=== PATIENT | female | born 1945 | race Caucasian/White ===

== ENCOUNTER → 2016-11-09 | Outpatient (CLI) | payer OTHER, BC ==
[~2016-11-09] MED LIST: ACTOS 45 MG45 M1 PO; ACTOS15 MG; ALENDRONATE SOD70 MG PO; BIOTIN1 MG PO; CALCIUM 600 +1 EAC5 PO; CALCIUM 600 MG1 EAC3; COUMADIN 2.5MG2.5 M1 PO; COUMADIN 3 MG TA3 MG; COUMADIN 5 MG TA5 M1; COUMADIN 5 MG TA5 M1 PO; COZAAR 50 MG TA50 M1 PO; DILTIAZEM 24HR360 M1 PO; DILTIAZEM HCL30 MG; DOCUSATE SODIU100 MG PO; ENOXAPARIN80 MG/0.8 SUBQ; FERRO-TIME325 MG PO; FLOVENT HFA 1110 MCG INH; FOLIC ACID 40400 MC1 PO; HYDROCHLOROTHIA25 M2 PO; HYDROCODON-ACE1 EAC7 PO; IBUPROFEN 600600 M1 PO; METAMUCIL1 EAC1 PO; MULTIVITAMINS PO; MULTIVITAMINS1 EAC7; PAIN & FEVER325 MG PO; PHILLIPS' COLO1 EACH PO; PRILOSEC 20 MG20 MG PO; PROAIR HFA8.5 GM INH; QVAR HFA 440 MCG/UN1 INH; QVAR HFA 880 MCG/UN1 INH; QVAR8.7 G1 INH; SAVAYSA60 MG PO; SIMVASTATIN5 MG; TAZTIA XT; TRAMADOL 50 MG50 MG PO; VITAMIN B122500 MCG PO; VITAMIN D1000 UNI1 PO; VITAMINC500 PO; ZINC CHELATE50 MG PO; ZOCOR 20 MG TAB20 M1 PO
== END ==
LOC: HYPER 07:04
DX: L89.892 Pressure ulcer of other site, stage 2 (principal); S71.001D Unspecified open wound, right hip, subsequent encounter; E11.22 Type 2 diabetes mellitus with diabetic chronic kidney disease; I12.9 Hypertensive chronic kidney disease with stage 1 through stage 4 chronic kidney disease, or unspecified chronic kidney disease; N18.9 Chronic kidney disease, unspecified; E11.69 Type 2 diabetes mellitus with other specified complication; I89.0 Lymphedema, not elsewhere classified; E66.01 Morbid (severe) obesity due to excess calories; J44.9 Chronic obstructive pulmonary disease, unspecified; I87.2 Venous insufficiency (chronic) (peripheral); E78.5 Hyperlipidemia, unspecified; Z79.84 Long term (current) use of oral hypoglycemic drugs; X58.XXXD Exposure to other specified factors, subsequent encounter

== ENCOUNTER → 2017-02-01 | Outpatient (CLI) | payer OTHER, BC | LOC: HYPER 07:17 | DX: L89.892 Pressure ulcer of other site, stage 2 (principal); S71.001D Unspecified open wound, right hip, subsequent encounter; E66.01 Morbid (severe) obesity due to excess calories; E11.65 Type 2 diabetes mellitus with hyperglycemia; I87.2 Venous insufficiency (chronic) (peripheral); J44.9 Chronic obstructive pulmonary disease, unspecified; E78.5 Hyperlipidemia, unspecified; E11.22 Type 2 diabetes mellitus with diabetic chronic kidney disease; I12.0 Hypertensive chronic kidney disease with stage 5 chronic kidney disease or end stage renal disease; N18.6 End stage renal disease; E11.51 Type 2 diabetes mellitus with diabetic peripheral angiopathy without gangrene; Z79.84 Long term (current) use of oral hypoglycemic drugs; Z87.891 Personal history of nicotine dependence; Z72.89 Other problems related to lifestyle; X58.XXXD Exposure to other specified factors, subsequent encounter ==

== ENCOUNTER → 2017-04-10 | Outpatient (CLI) | payer OTHER, BC | LOC: HYPER 07:02 | DX: E11.622 Type 2 diabetes mellitus with other skin ulcer (principal); I87.2 Venous insufficiency (chronic) (peripheral); L97.121 Non-pressure chronic ulcer of left thigh limited to breakdown of skin; I89.0 Lymphedema, not elsewhere classified; E11.65 Type 2 diabetes mellitus with hyperglycemia; J44.9 Chronic obstructive pulmonary disease, unspecified; E11.22 Type 2 diabetes mellitus with diabetic chronic kidney disease; I12.9 Hypertensive chronic kidney disease with stage 1 through stage 4 chronic kidney disease, or unspecified chronic kidney disease; N18.9 Chronic kidney disease, unspecified; I48.92 Unspecified atrial flutter; I65.29 Occlusion and stenosis of unspecified carotid artery; E66.01 Morbid (severe) obesity due to excess calories; Z79.84 Long term (current) use of oral hypoglycemic drugs; Z87.891 Personal history of nicotine dependence; Z72.89 Other problems related to lifestyle ==

== ENCOUNTER 2017-05-15 18:36 | Emergency (ER) | payer OTHER, BC ==
[~2017-05-15] VITALS: Ht 154.9 cm; Wt 99.8 kg
[2017-05-15 19:28] LABS: URINE BILIRUBIN NEGATIVE (Negative); URINE BLOOD 1+ (Negative); URINE COLOR YELLOW; URINE GLUCOSE-RANDOM* NEGATIVE (Negative); URINE KETONES 1+ (Negative); URINE LEUKOCYTES-REFLEX 3+ (Negative); URINE PROTEIN (DIPSTICK) 1+ (Negative); URINE SPECIFIC GRAVITY 1.015 (1.003-1.035)
[2017-05-15 19:30] LABS: HEMATOCRIT 32.3 % (37.0-47.0); HEMOGLOBIN 10.7 gm/dL (12.0-15.0); MCH 32.6 pg (26.0-34.0); MCHC 33.1 g/dL (28.0-37.0); MCV 98.4 fL (80.0-100.0); PLATELET COUNT 202 thou/uL (150-400); RBC 3.28 mil/uL (4.20-5.00); RDW 16.3 % (10.5-14.5); WBC 8.5 thou/uL (4.0-11.0)
[2017-05-15 19:31] LABS: MANUAL DIFF YES
[2017-05-15 19:34] LABS: CASTS None Seen /LPF (None Seen); CRYSTALS None Seen /LPF (None Seen); SQUAMOUS 0-3 Few /LPF (0-3); URINE RBC 3-10 Few /HPF (0-2); URINE WBC-REFLEX >25 Many /HPF (0-5)
[2017-05-15 19:38] LABS: CALCIUM 9.5 mg/dL (8.5-10.1); CREATININE 1.1 mg/dL (0.6-1.0); POTASSIUM 4.3 mmol/L (3.5-5.1)
[2017-05-15 19:51] LABS: ABSOLUTE NEUTROPHILS 7.5 thou/uL (1.4-8.2); TOTAL CELL COUNT 100
[2017-05-15] MEDS ORDERED: KEFLEX500 MG PO (20:33)
== END 2017-05-15 21:01 | disposition home or self-care (01) ==
LOC: ER 18:36
PROVIDERS: Emergency Medicine
DX: N39.0 Urinary tract infection, site not specified (principal); I12.9 Hypertensive chronic kidney disease with stage 1 through stage 4 chronic kidney disease, or unspecified chronic kidney disease; E11.22 Type 2 diabetes mellitus with diabetic chronic kidney disease; N18.9 Chronic kidney disease, unspecified; R06.02 Shortness of breath; E78.00 Pure hypercholesterolemia, unspecified; E66.01 Morbid (severe) obesity due to excess calories; J44.9 Chronic obstructive pulmonary disease, unspecified; K21.9 Gastro-esophageal reflux disease without esophagitis; I48.91 Unspecified atrial fibrillation; F10.99 Alcohol use, unspecified with unspecified alcohol-induced disorder; Z98.890 Other specified postprocedural states; Z99.2 Dependence on renal dialysis

== ENCOUNTER → 2017-06-15 | Outpatient (CLI) | payer OTHER, BC ==
[~2017-06-15] MED LIST changes: +KEFLEX500 MG PO
== END ==
LOC: RAD 10:22
DX: J90 Pleural effusion, not elsewhere classified (principal)

== ENCOUNTER → 2017-06-21 | Outpatient (CLI) | payer OTHER, BC ==
--- NOTE | ~2017-06-21 | CNG ---
[facility] [place] [address] CYTO-NONGYN REPORT PROCEDURE Name: KAJAL HADLEY Room #: REG [facility].#: [id number] Admission: 06/21/17 Date of : 41 Discharge: Report #: [id number] Path Case #: [id number] CYTOPATHOLOGY REPORT COLLECTION DATE: 06/21/2017 RECEIVED DATE: 06/21/2017 SUBMITTING PHYS: Dr. Beingno Negrete OTHER PHYS: Dr. Nerissa Castellanos CLINICAL HISTORY: Not Provided SPECIMEN(S) RECEIVED: A.Pleural fluid, Thoracentesis * * * * * * * * * * * * FINAL DIAGNOSIS: A. Pleural fluid, Thoracentesis: - No malignant cells identified. Paucicellular specimen with rare mesothelial cells and scattered acute and chronic inflammatory cells present. PATHOLOGIST: Ivonne Che M.D. REPORT ELECTRONICALLY SIGNED BY: Ivonne Che M.D. DATE/TIME: 06/22/2017 12:39 * * * * * * * * * * * * GROSS PATHOLOGY: A. Pleural fluid, Thoracentesis: The specimen is submitted unfixed, labeled "Kajal Hadley". Received by the Cytology Department is 27 mL of clear yellow fluid. One ThinPrep slide and a cell block were prepared. (mm 06.21.2017) SPECIAL EDUCATION RESOURCE ROOM TEACHER(S): GUANAKO Jiménez([facility]) INITIAL CPT CODE(S): A; 69105, 59835 Professional services performed by [facility] at [facility] [address], [place] [address] Technical services performed by [facility] at [address] [place] [address]., [address], [place] [address]. [facility] [address] [place] [address], [facility] [address] [place] [address] [facility] [address] [place] [address] CYTO-NONGYN REPORT PROCEDURE Name: KAJAL HADLEY Room #: REG CONG [place]#: [id number] Admission: 06/21/17 Date of : 41 Discharge: Report #: [id number] Path Case #: [id number] PHONE: [phone] DIRECTOR: Constantin Hinojosa M.D. * * * END OF REPORT * * *
[2017-06-21 10:05] LABS: HEMATOCRIT 29.6 % (37.0-47.0); HEMOGLOBIN 9.8 gm/dL (12.0-15.0); MCH 32.1 pg (26.0-34.0); MCV 97.3 fL (80.0-100.0); RBC 3.04 mil/uL (4.20-5.00); RDW 16.7 % (10.5-14.5); WBC 4.2 thou/uL (4.0-11.0)
[2017-06-21 10:16] LABS: INR 1.2; PROTIME 11.8 Seconds (9.3-11.4)
[2017-06-21 10:17] LABS: ALBUMIN 3.3 g/dL (3.4-5.0); CREATININE 1.6 mg/dL (0.6-1.0)
[2017-06-21 12:06] LABS: CLARITY SLIGHTLY CLOUDY; COLOR YELLOW; TOTAL VOLUME 55 mL
[2017-06-21 12:24] LABS: BF NUCLEATED CELLS 261; BF RBC 653
[2017-06-21 13:07] LABS: BF MACROPHAGE 50; BF NEUTROPHILS 7; MANUAL DIFF YES
[2017-06-22 15:07] LABS: BODY FLUID ALBUMIN 1.8 g/dL (()); BODY FLUID AMYLASE 13 U/L (()); BODY FLUID GLUCOSE 104 mg/dL (()); BODY FLUID LDH 84 IU/L (()); BODY FLUID PROTEIN 2.6 g/dL (())
== END ==
LOC: ULTRA 08:59
PROVIDERS: Internal Medicine Pulmonary Disease
DX: J90 Pleural effusion, not elsewhere classified (principal)

== ENCOUNTER 2017-07-04 13:33 | Inpatient (IN) | payer OTHER, BC ==
[~2017-07-04] VITALS: Ht 152.4 cm; Wt 93.4 kg
--- NOTE | ~2017-07-04 | EKG ---
[place] [address] [address] [facility] [employer] [address] ELECTROCARDIOGRAM REPORT Name: SHANE CASTAÑEDA Room #: 217- ADM IN M.R.#: [id number] Admission: 07/04/17 Attend Phys: Dwayne Vega MD Discharge: Date of : 41 Report #: [id number] THIS REPORT FOR: //name// [facility] Test Date: 2017-07-04 Test Time: 17:18:02 Pat Name: SHANE CASTAÑEDA Department: Room: 217 Gender: F Studio Engineer: EMILY : 1945 Requested By: Benigno Negrete Order Number: [id number] MD: Jax Mello Measurements Intervals [place] Rate: 75 P: [place]: QRS: 66 QRSD: 104 T: -8 QT: 446 QTc: 499 Interpretive Statements Atrial fibrillation Low voltage, precordial leads Poor R wave progression Compared to ECG 08/01/2013 21:15:58 Heart rate has slowed Electronically Signed On 07-05-2017 8:46:37 CDT by Jax Mello [email or web address] <ELECTRONICALLY SIGNED> By: Jax Mello MD, [facility] 07/05/1746 1718 17 Jax Mello MD, [facility] /EPI
--- NOTE | ~2017-07-04 | CNG ---
[facility] [place] [address] CYTO-NONGYN REPORT PROCEDURE Name: KAJAL HADLEY Room #: 217-P [facility] IN M.R.#: [id number] Admission: 07/04/17 Date of : 41 Discharge: 07/06/17 Report #: [id number] Path Case #: [id number] CYTOPATHOLOGY REPORT COLLECTION DATE: 07/05/2017 RECEIVED DATE: 07/05/2017 SUBMITTING PHYS: Dr. Benigno Negrete OTHER PHYS: Dr. Dwayne Castellanos CLINICAL HISTORY: Right Pleural Effusion, CHF SPECIMEN(S) RECEIVED: A.Pleural fluid, Right * * * * * * * * * * * * FINAL DIAGNOSIS: A. Right Pleural fluid: - No malignant epithelial cells identified. Few reactive mesothelial cells are present along with acute and chronic inflammatory cells. PATHOLOGIST: Rita Avalos M.D. REPORT ELECTRONICALLY SIGNED BY: Rita Avalos M.D. DATE/TIME: 07/06/2017 15:31 * * * * * * * * * * * * GROSS PATHOLOGY: A. Pleural fluid, Right: The specimen is submitted unfixed, labeled "Kajal Hadley". Received by the Cytology Department is 25 mL of clear yellow fluid. One ThinPrep slide and a formalin fixed cell block were prepared. (lg 07.05.2017) CMM OPERATOR(S): Noe J [place], [place]([facility]) INITIAL CPT CODE(S): A; 99804, 94119 Professional services performed by [facility] at [facility] [address], [place] [address] Technical services performed by [facility] at [address] [place] [address]., [address], [place] [address]. [facility] [address] [place] [address], [address] [facility] [address] [place] [address] CYTO-NONGYN REPORT PROCEDURE Name: KAJAL HADLEY Room #: 217-P DIS IN M.R.#: [id number] Admission: 07/04/17 Date of : 41 Discharge: 07/06/17 Report #: [id number] Path Case #: [id number] [place] [address] PHONE: [phone] DIRECTOR: Constantin Hinojosa M.D. * * * END OF REPORT * * *
--- NOTE | ~2017-07-04 | 2DMMODE ---
[facility] [address] [place] [address] 2 D/M-MODE ECHOCARDIOGRAM Name: SHANE CASTAÑEDA Room #: 217-P ADM IN ..#: [id number] Admission: 07/04/17 Attend Phys: Dwayne Vega MD Discharge: Date of : 41 Date of Service: 07/05/17 1350 Report #: [id number] THIS REPORT FOR: //name// APPROVED REPORT Study performed: 07/05/2017 09:16:22 EXAM: Comprehensive 2D, Doppler, and color-flow Echocardiogram Patient Location: Bedside Status: routine BSA: 1.89 HR: 80 bpm BP: 126/61 mmHg Rhythm: Atrial Fibrillation Other Information Study Quality: Adequate Indications COPD Pulmonary Hypertension Atrial Fibrillation Hypertension/HDD Pleural Effusion Hx: HTN 2D Dimensions RVDd: 43.54 mm LVEF(%): 69.29 (>50%) IVSd: 8.98 (7-11mm) LVOT Diam: 20.07 (18-24mm) LVDd: 50.16 mm PWd: 10.30 (7-11mm) Ascending Ao: 31.68 (22-36mm) LVDs: 30.55 (25-40mm) Aortic Root: 30.79 mm IVC: 28.00 mm Obrien's LVEF: 69.29 % Volumes Left Atrial Volume (Systole) Single Plane 4CH: 116.59 mL Single Plane 2CH: 76.00 mL LA ESV Index: 55.00 mL/m2 Aortic Valve AoV Peak Edin.: 1.79 m/s AO Peak Gr.: 12.78 mmHg LVOT Max P.28 mmHg LVOT Max V: 1.03 m/s [facility] [place] [address] [place] [address] 2 D/M-MODE ECHOCARDIOGRAM Name: SHANE CASTAÑEDA Room #: 217-P [facility] IN ..#: [id number] Admission: 07/04/17 Attend Phys: Dwayne Vega MD Discharge: Date of : 41 Date of Service: 07/05/17 1350 Report #: [id number] AMANDEEP Vmax: 1.83 cm2 Mitral Valve MV Peak Gr.: 19.30 mmHg MV Mean Gr.: 7.67 mmHg MV Decel. Time: 177.51 ms MV E Max Edin.: 1.89 m/s MV Max Edin.: 2.19 m/s MV Mean Edin.: 1.26 m/s MV VTI: 415.33 mm MV PHT: 77.39 ms MVA (PHT): 2.84 cm2 Pulmonary Valve PV Peak Edin.: 1.13 m/s PV Peak Gr.: 5.15 mmHg Tricuspid Valve TR Peak Edin.: 3.43 m/s RAP Estimate: 15.00 mmHg TR Peak Gr.: 47.18 mmHg PA Pressure: 62.00 mmHg Left Ventricle The left ventricle is normal size. There is normal left ventricular wall thickness. Left ventricular systolic function is normal. LVEF is 55-60%. This study is not technically sufficient to allow evaluation of the LV diastolic function due to atrial fibrillation. Right Ventricle Right ventricle is dilated. The right ventricular systolic function is normal. Atria Left atrium is severely dilated. Right atrium is dilated. Aortic Valve The aortic valve is normal in structure. No aortic regurgitation is present. There is no aortic valvular stenosis. Mitral Valve Mitral valve leaflets are thickened. The mitral valve is calcified. Mild mitral regurgitation. No evidence of mitral valve stenosis. Tricuspid Valve The tricuspid valve is normal in structure. Mild to moderate tricuspid regurgitation. Moderate to severe pulmonary [place] [id number] 2 D/M-MODE ECHOCARDIOGRAM Name: SHANE CASTAÑEDA Room #: 217-P [facility] IN [facility]#: [id number] Admission: 07/04/17 Attend Phys: Dwayne Vega MD Discharge: Date of : 41 Date of Service: 07/05/17 1350 Report #: [id number] hypertension. Pulmonic Valve Pulmonic valve is grossly normal in structure. Trace pulmonic regurgitation. Great Vessels The aortic root is normal in size. The ascending aorta is normal in size. IVC is dilated and collapses <50% with inspiration. Pericardium There is no pericardial effusion. Pleural effusion is present. <Conclusion> The left ventricle is normal size. Left ventricular systolic function is normal. Right ventricle is dilated. Left atrium is severely dilated. Right atrium is dilated. There is no aortic valvular stenosis. Mitral valve leaflets are thickened. The mitral valve is calcified. Mild mitral regurgitation. Mild to moderate tricuspid regurgitation. Moderate to severe pulmonary hypertension. <ELECTRONICALLY SIGNED> By: Twan Ko MD 07/05/17 1350 135 1350 Twan Ko MD /INF
[2017-07-04] MEDS ORDERED: DESVENLAFAXINE50 M2 PO (17:20)
[2017-07-04] MEDS ORDERED: BREO ELLIPTA 21 EACH IH (17:21)
[2017-07-04] MEDS ORDERED: DUONEB 2.5-0.5 M3 ML INH (17:23)
[2017-07-04] MEDS ORDERED: PULMICORT0.5 MG/22 INH (17:50)
[2017-07-04] MEDS ORDERED: SAVAYSA60 MG PO (17:54)
[2017-07-04] MEDS ORDERED: LEVOTHYROXIN0.075 MG PO (17:55)
[2017-07-04 17:56] VITALS: BP 136/71
[2017-07-04] MEDS ORDERED: HYZAAR 50-12.51 EACH PO (17:56)
[2017-07-04 17:57] LABS: HEMATOCRIT 29.7 % (37.0-47.0); HEMOGLOBIN 9.7 gm/dL (12.0-15.0); MCH 31.8 pg (26.0-34.0); MCHC 32.7 g/dL (28.0-37.0); MCV 97.2 fL (80.0-100.0); RBC 3.05 mil/uL (4.20-5.00); RDW 16.5 % (10.5-14.5); WBC 4.7 thou/uL (4.0-11.0)
[2017-07-04 18:11] LABS: INR 1.4; PROTIME 14.4 Seconds (9.3-11.4)
[2017-07-04 18:15] LABS: ALBUMIN 3.2 g/dL (3.4-5.0); CALCIUM 9.4 mg/dL (8.5-10.1); CREATININE 1.2 mg/dL (0.6-1.0); POTASSIUM 4.1 mmol/L (3.5-5.1); TOTAL BILIRUBIN 0.6 mg/dL (<0.1-1.0); TOTAL PROTEIN 7.8 g/dL (6.4-8.2)
[2017-07-04 19:11] VITALS: BP 159/60
[2017-07-05 03:15] LABS: CALCIUM 9.2 mg/dL (8.5-10.1); MAGNESIUM 2.1 mg/dL (1.8-2.4); POTASSIUM 4.4 mmol/L (3.5-5.1)
[2017-07-05 04:45] VITALS: BP 126/61
[2017-07-05 08:00] VITALS: BP 136/58
[2017-07-05 12:08] VITALS: BP 137/68
[2017-07-05 14:45] LABS: CLARITY SLIGHTLY CLOUDY; COLOR YELLOW; MANUAL DIFF YES; TOTAL VOLUME 55 mL
[2017-07-05 15:15] LABS: BF NUCLEATED CELLS 264; BF RBC 622
[2017-07-05 16:26] LABS: BF NEUTROPHILS 22
[2017-07-05 16:27] LABS: BF MACROPHAGE 23
[2017-07-05 17:35] VITALS: BP 134/62
[2017-07-05 19:51] VITALS: BP 94/57
[2017-07-05 21:11] LABS: BODY FLUID AMYLASE 15 U/L (()); BODY FLUID GLUCOSE 96 mg/dL (()); BODY FLUID LDH 113 IU/L (()); BODY FLUID PROTEIN 3.7 g/dL (())
[2017-07-06 00:11] VITALS: BP 115/54
[2017-07-06 03:00] VITALS: BP 111/52
[2017-07-06 07:53] VITALS: BP 138/52
[2017-07-06 08:20] LABS: ABSOLUTE NEUTROPHILS 2.6 thou/uL (1.4-8.2); BASOPHILS 0.7 % (0.0-2.0); EOSINOPHILS 4.3 % (0.0-3.0); HEMATOCRIT 30.3 % (37.0-47.0); HEMOGLOBIN 9.9 gm/dL (12.0-15.0); LYMPHOCYTES 23.9 % (24.0-44.0); MCH 31.5 pg (26.0-34.0); MCHC 32.8 g/dL (28.0-37.0); MONOCYTES 7.1 % (1.0-8.0); PLATELET COUNT 229 thou/uL (150-400); RBC 3.16 mil/uL (4.20-5.00); RDW 16.1 % (10.5-14.5)
[2017-07-06 08:23] LABS: MANUAL DIFF NO
[2017-07-06 08:28] LABS: CALCIUM 9.6 mg/dL (8.5-10.1); POTASSIUM 4.3 mmol/L (3.5-5.1)
[2017-07-06 11:34] VITALS: BP 128/54
[2017-07-06 12:37] VITALS: BP 128/54
[2017-07-06] MEDS ORDERED: COZAAR 50 MG TA50 MG PO (12:46)
[2017-07-06] MEDS ORDERED: LASIX 40 MG TAB40 M2 PO (12:48)
[2017-07-06 13:03] VITALS: BP 128/54
[2017-07-06 15:12] LABS: BODY FLUID ALBUMIN 2.2 g/dL (())
== END 2017-07-06 14:13 | disposition home health service (06) | DRG 189 ==
LOC: RAD 13:33 → 2N 15:39 → RAD 15:39 → 2N 15:53 → ENTRNSPT 07-06 14:00 → EDTRNSPTSTS 07-06 14:02 → 2N 07-06 14:13
PROVIDERS: Hospitalist; Internal Medicine Pulmonary Disease; Nurse Practitioner
PROC: 0W993ZZ Drainage of Right Pleural Cavity, Percutaneous Approach (ICD-10-PCS; principal; 2017-07-05)
DX: J96.21 Acute and chronic respiratory failure with hypoxia (principal); J90 Pleural effusion, not elsewhere classified; J98.11 Atelectasis; Z68.41 Body mass index [BMI] 40.0-44.9, adult; I11.0 Hypertensive heart disease with heart failure; E78.5 Hyperlipidemia, unspecified; J44.9 Chronic obstructive pulmonary disease, unspecified; E11.9 Type 2 diabetes mellitus without complications; D64.9 Anemia, unspecified; E78.00 Pure hypercholesterolemia, unspecified; N28.9 Disorder of kidney and ureter, unspecified; I48.2 Chronic atrial fibrillation; E66.01 Morbid (severe) obesity due to excess calories; K21.9 Gastro-esophageal reflux disease without esophagitis; Z66 Do not resuscitate; I50.9 Heart failure, unspecified; Z99.81 Dependence on supplemental oxygen; Z87.891 Personal history of nicotine dependence; Z98.42 Cataract extraction status, left eye; Z98.41 Cataract extraction status, right eye; Z80.9 Family history of malignant neoplasm, unspecified; Z82.49 Family history of ischemic heart disease and other diseases of the circulatory system
CPT/HCPCS: 10081

== ENCOUNTER → 2017-07-17 | Outpatient (CLI) | payer OTHER, BC ==
[~2017-07-17] MED LIST changes: +BREO ELLIPTA 21 EACH IH; +COZAAR 50 MG TA50 MG PO; +DESVENLAFAXINE50 M2 PO; +DUONEB 2.5-0.5 M3 ML INH; +HYZAAR 50-12.51 EACH PO; +LASIX 40 MG TAB40 M2 PO; +LEVOTHYROXIN0.075 MG PO; +PULMICORT0.5 MG/22 INH
== END ==
LOC: RAD 09:37
DX: J90 Pleural effusion, not elsewhere classified (principal)

== ENCOUNTER → 2017-07-18 | Outpatient (CLI) | payer OTHER, BC | LOC: HYPER 07-03 07:08 | DX: E11.622 Type 2 diabetes mellitus with other skin ulcer (principal); L97.121 Non-pressure chronic ulcer of left thigh limited to breakdown of skin; I89.0 Lymphedema, not elsewhere classified; E66.01 Morbid (severe) obesity due to excess calories; E11.65 Type 2 diabetes mellitus with hyperglycemia; I87.2 Venous insufficiency (chronic) (peripheral); Z79.84 Long term (current) use of oral hypoglycemic drugs; Z68.41 Body mass index [BMI] 40.0-44.9, adult; J44.9 Chronic obstructive pulmonary disease, unspecified; E11.22 Type 2 diabetes mellitus with diabetic chronic kidney disease; I12.9 Hypertensive chronic kidney disease with stage 1 through stage 4 chronic kidney disease, or unspecified chronic kidney disease; N18.9 Chronic kidney disease, unspecified; E78.5 Hyperlipidemia, unspecified; Z87.891 Personal history of nicotine dependence; Z72.89 Other problems related to lifestyle ==

== ENCOUNTER → 2017-07-21 | Outpatient (CLI) | payer OTHER, BC ==
--- NOTE | ~2017-07-21 | CNG ---
[facility] [place] [place] [place] [address] CYTO-NONGYN REPORT PROCEDURE Name: GARRYKAJAL Room #: REG [facility] [place].#: [id number] Admission: 07/21/17 Date of : 41 Discharge: Report #: [id number] Path Case #: [id number] CYTOPATHOLOGY REPORT COLLECTION DATE: 07/21/2017 RECEIVED DATE: 07/21/2017 SUBMITTING PHYS: Dr. Benigno Negrete OTHER PHYS: Dr. Nerissa Castellanos CLINICAL HISTORY: Pleural effusion SPECIMEN(S) RECEIVED: A.Pleural fluid * * * * * * * * * * * * FINAL DIAGNOSIS: A. Pleural fluid: - No malignant cells identified. Scattered groups of reactive mesothelial cells are identified. PATHOLOGIST: Jorge White M.D. REPORT ELECTRONICALLY SIGNED BY: Jorge White M.D. DATE/TIME: 07/24/2017 10:56 * * * * * * * * * * * * GROSS PATHOLOGY: A. Pleural fluid: The specimen is submitted unfixed, labeled "Kajal Hadley". Received by the Cytology Department is 25 mL of clear yellow fluid. One ThinPrep slide and a formalin fixed cell block were prepared. (07.21.2017) SECURITY INTELLIGENCE ANALYST(S): GUANAKO Duenas([facility]) INITIAL CPT CODE(S): A; 36099, 76225 Professional services performed by [facility] at [facility] [address], [place] [address] Technical services performed by [facility] at [address] [place] [address]., [address], [place] [address]. [facility] [address] [place] [address], [address] [place] [address] PHONE: [phone] [facility] [address] [place] [address] CYTO-NONGYN REPORT PROCEDURE Name: KAJAL HADLEY Room #: REG CONG [place].#: [id number] Admission: 07/21/17 Date of : 41 Discharge: Report #: [id number] Path Case #: [id number] DIRECTOR: Constantin Hinojosa M.D. * * * END OF REPORT * * *
[2017-07-21 10:19] LABS: CALCIUM 9.5 mg/dL (8.5-10.1); CREATININE 2.5 mg/dL (0.6-1.0); POTASSIUM 5.4 mmol/L (3.5-5.1)
[2017-07-21 10:53] LABS: HEMATOCRIT 27.3 % (37.0-47.0); MCH 31.5 pg (26.0-34.0); MCV 95.5 fL (80.0-100.0); RBC 2.86 mil/uL (4.20-5.00); RDW 15.9 % (10.5-14.5); WBC 4.9 thou/uL (4.0-11.0)
[2017-07-21 11:08] LABS: INR 1.2
[2017-07-21 12:35] LABS: BF NUCLEATED CELLS 319; BF RBC 387
[2017-07-21 12:37] LABS: CLARITY CLEAR; COLOR YELLOW; MANUAL DIFF YES; TOTAL VOLUME 55 mL
[2017-07-21 13:20] LABS: BF MACROPHAGE 31; BF NEUTROPHILS 4
[2017-07-21 18:20] LABS: BODY FLUID AMYLASE 15 U/L (()); BODY FLUID GLUCOSE 98 mg/dL (()); BODY FLUID LDH 104 IU/L (()); BODY FLUID PROTEIN 3.6 g/dL (())
== END | disposition home or self-care (01) ==
LOC: LABMALL 09:33 → ULTRA 12:12 → LABMALL 12:13
PROVIDERS: Internal Medicine Pulmonary Disease
DX: J90 Pleural effusion, not elsewhere classified (principal); Z79.899 Other long term (current) drug therapy

== ENCOUNTER → 2017-08-08 | Outpatient (CLI) | payer OTHER, BC | LOC: RAD 13:21 | DX: J90 Pleural effusion, not elsewhere classified (principal) ==

== ENCOUNTER → 2017-08-14 | Outpatient (CLI) | payer OTHER, BC | LOC: RAD 11:14 | DX: J90 Pleural effusion, not elsewhere classified (principal); M47.894 Other spondylosis, thoracic region ==

== ENCOUNTER → 2017-08-30 | Outpatient (CLI) | payer OTHER, BC | LOC: RAD 11:39 | DX: J44.9 Chronic obstructive pulmonary disease, unspecified (principal); J90 Pleural effusion, not elsewhere classified ==

== ENCOUNTER → 2017-11-03 | Outpatient (CLI) | payer OTHER, BC | LOC: RAD 09:18 | DX: J90 Pleural effusion, not elsewhere classified (principal); I51.7 Cardiomegaly; R91.8 Other nonspecific abnormal finding of lung field; J98.11 Atelectasis; M47.894 Other spondylosis, thoracic region; R60.9 Edema, unspecified; I11.0 Hypertensive heart disease with heart failure; J44.9 Chronic obstructive pulmonary disease, unspecified; I48.91 Unspecified atrial fibrillation; E78.5 Hyperlipidemia, unspecified ==

== ENCOUNTER → 2017-12-15 | Outpatient (CLI) | payer OTHER, BC | LOC: RAD 13:40 | DX: J90 Pleural effusion, not elsewhere classified (principal); I48.91 Unspecified atrial fibrillation; J44.9 Chronic obstructive pulmonary disease, unspecified; I10 Essential (primary) hypertension; E78.5 Hyperlipidemia, unspecified ==

== ENCOUNTER → 2018-03-15 | Outpatient (CLI) | payer OTHER, BC | LOC: RAD 06:57 | DX: I51.7 Cardiomegaly (principal); J90 Pleural effusion, not elsewhere classified; J98.11 Atelectasis; M47.894 Other spondylosis, thoracic region; R06.09 Other forms of dyspnea ==

== ENCOUNTER → 2018-03-26 | Outpatient (CLI) | payer OTHER, BC ==
--- NOTE | ~2018-03-26 | 2DMMODE ---
[facility] [place] [address] 2 D/M-MODE ECHOCARDIOGRAM Name: GARRYSHANE LIU Room #: REG COUNTS INCLUDE 234 BEDS AT THE [facility]#: [id number] Admission: 03/26/18 Attend Phys: Twan Ko MD Discharge: Date of : 41 Date of Service: 03/26/18 1011 Report #: [id number] THIS REPORT FOR: //name// APPROVED REPORT Study performed: 03/26/2018 09:09:52 EXAM: Comprehensive 2D, Doppler, and color-flow Echocardiogram Patient Location: Out-Patient Status: routine BSA: 1.85 HR: 86 bpm BP: 117/63 mmHg Rhythm: Atrial Fibrillation Other Information Study Quality: Adequate Indications AFib. Hx: Afib, HTN, HLP, COPD 2D Dimensions RVDd: 51.26 mm LVEF(%): 67.14 (>50%) IVSd: 9.72 (7-11mm) LVOT Diam: 19.16 (18-24mm) LVDd: 47.34 mm PWd: 9.94 (7-11mm) LVDs: 29.72 (25-40mm) Aortic Root: 28.86 mm Obrien's LVEF: 67.14 % Volumes Left Atrial Volume (Systole) Single Plane 4CH: 79.21 mL Single Plane 2CH: 82.89 mL LA ESV Index: 46.00 mL/m2 Aortic Valve AoV Peak Edin.: 2.06 m/s AO Peak Gr.: 17.00 mmHg LVOT Max P.53 mmHg AO Mean Gr.: 9.71 mmHg AO V2 Mean: 1.49 m/s LVOT Max V: 0.94 m/s AO V2 VTI: 50.32 cm AMANDEEP Vmax: 1.31 cm2 Mitral Valve [facility] [place] [address] 2 D/M-MODE ECHOCARDIOGRAM Name: GARRYSHANE MAO Room #: REG COUNTS INCLUDE 234 BEDS AT THE [facility]#: [id number] Admission: 03/26/18 Attend Phys: Twan Ko MD Discharge: Date of : 41 Date of Service: 03/26/18 1011 Report #: [id number] MV Decel. Time: 191.77 ms MV PHT: 51.94 ms MVA (PHT): 4.24 cm2 Pulmonary Valve PV Peak Edin.: 1.18 m/s PV Peak Gr.: 5.57 mmHg Tricuspid Valve TR Peak Edin.: 3.46 m/s RAP Estimate: 15.00 mmHg TR Peak Gr.: 47.94 mmHg PA Pressure: 63.00 mmHg Left Ventricle The left ventricle is normal size. There is normal left ventricular wall thickness. Left ventricular systolic function is normal. LVEF is 55%. This study is not technically sufficient to allow evaluation of the LV diastolic function due to atrial fibrillation. Right Ventricle Right ventricle is dilated. The right ventricular systolic function is low normal. Atria Left atrium is moderately dilated. Right atrium is severely dilated. Aortic Valve The aortic valve is not well visualized but appears calcified. No aortic regurgitation is present. Mild aortic stenosis. Mitral Valve Mitral valve leaflets are thickened and calcified. Moderate to severe mitral annular calcification. Mild mitral regurgitation. Mild mitral stenosis. Tricuspid Valve The tricuspid valve is normal in structure. Moderate tricuspid regurgitation. Estimated PAP is 60-65mmHg. Pulmonic Valve Pulmonic valve is not well visualized. Trace pulmonic regurgitation. Great Vessels The aortic root is normal in size. The ascending aorta is normal in size. IVC is dilated and collapses <50% with [facility] [address] [address] 2 D/M-MODE ECHOCARDIOGRAM Name: SHANE CASTAÑEDA Room #: REG COUNTS INCLUDE 234 BEDS AT THE [facility]#: [id number] Admission: 03/26/18 Attend Phys: Twan Ko MD Discharge: Date of : 41 Date of Service: 03/26/18 1011 Report #: [id number] inspiration. Pericardium There is no pericardial effusion. <Conclusion> The left ventricle is normal size. There is normal left ventricular wall thickness. Left ventricular systolic function is normal. Right ventricle is dilated. Right atrium is severely dilated. Left atrium is moderately dilated. Mild aortic stenosis. Mitral valve leaflets are thickened and calcified. Moderate to severe mitral annular calcification. Mild mitral regurgitation. Mild mitral stenosis. Moderate tricuspid regurgitation. Estimated PAP is 60-65mmHg. <ELECTRONICALLY SIGNED> By: Twan Ko MD 03/26/18 1011 1011 1011 Twan Ko MD /INF
== END ==
LOC: CV 08:49
DX: I08.3 Combined rheumatic disorders of mitral, aortic and tricuspid valves (principal); I48.91 Unspecified atrial fibrillation; I10 Essential (primary) hypertension; E78.5 Hyperlipidemia, unspecified; J44.9 Chronic obstructive pulmonary disease, unspecified

== ENCOUNTER → 2019-04-23 | Outpatient (CLI) | payer OTHER, BC | LOC: RAD 11:17 | DX: M47.816 Spondylosis without myelopathy or radiculopathy, lumbar region (principal); M76.892 Other specified enthesopathies of left lower limb, excluding foot; M43.17 Spondylolisthesis, lumbosacral region ==

== ENCOUNTER → 2019-07-17 | Outpatient (CLI) | payer OTHER, BC ==
[~2019-07-17] VITALS: Ht 152.4 cm; Wt 74.8 kg
[~2019-07-17] MED LIST changes: -ACTOS 45 MG45 M1 PO; +ELIQUIS5 MG PO; +GLUCOSAMINE CH1 EA10 PO; +LASIX 20 MG TAB20 MG PO; +PIOGLITAZONE15 MG; +ZANTAC 150MG T150 MG PO
[2019-07-17 13:36] VITALS: BP 115/65
--- NOTE | 2019-07-17 13:53 | NUR ---
Pain Clinic Assessment: 1. History of Osteoarthritis: SPINE History of Rheumatoid Arthritis: NO 2. Height: 5 ft. 0 in. 152.4 cm. Weight: 165.0 lb. oz. 74.844 kg. Patient's BMI: 32.2 3. Vital Signs: BP: 115/65 Pulse: 63 Resp: 16 Temp: 02 Sat: 99 ECG Mon: 4. Pain Intensity: 8 5. Fall Risk: Dizziness: N Needs help standing or walking: Y Fallen in the last 3 months: Y Fall risk comments: 6. Patient on Blood Thinner: jimquis 7. History of Hypertension: Y 8. Opioid Therapy greater than 6 weeks: N Opiate Contract Signed: 9. Risk Assessment Tool Provided: 10. Functional Assessment Tool: 11. Recreational Drug Use: Never Drug Type: Tobacco Use: Never Smoker Tobacco Type: Amount or Packs/day: How Many Years: Alcohol Use: No Frequency: Quant:
--- NOTE | 2019-07-29 08:54 | HPC ---
[facility] [place] [address] PAIN MANAGEMENT CONSULTATION Name: SHANE CASTAÑEDA Room #: REG CONG [place]i#: [id number] Admission: 07/17/19 ������������������ Attend Phys: Spring Glasgow MD Discharge: ������������������ Date of : 41 Report #: [id number] THIS REPORT FOR: //name// CC: Carolynn Glasgow DATE OF SERVICE: 07/24/2019 CHIEF COMPLAINT: Osteoarthritis and low back pain. HISTORY: The patient is a 74-year-old female who has been referred to the pain clinic for evaluation of back pain. Noticed that the pain increased during April. It involves her left leg. She feels that the pain is radiating down into her hip and if she is experiencing some tightness in her leg muscles. Notes that the pain is worse when she "walks a lot." She has used ice to help decrease his discomfort. She describes it as constant, intermittent and aching. Rates it as an 8/10. She did recall falling out of a desk chair. She fell on her butt. There was some increased soreness the following day. Did not notice any significant bruising. The patient has participated in physical therapy, but still has pain, which is still problematic. She has had x-rays that showed some degenerative changes in her low back. Walking is problematic. She walks from her bedroom to the living room. She is using a cane or holding on to the null for stability. ALLERGIES: No known drug allergies. MEDICATIONS: Glucosamine/chondroitin, Xanax 150 mg at bedtime, losartan 50 mg, Lasix 20 mg, Eliquis 5 mg b.i.d., Synthroid 0.075 mg, Pulmicort 0.5 mg, Desvenlafaxine 50 mg, alendronate 75/70 mg, vitamin B12 2500 mcg, ascorbic acid 50 mg, ProAir, diltiazem 360 mg, Actos 15 mg, multivitamin. PAST MEDICAL HISTORY: 1. Colostomy/colostomy closure on 06/2009 secondary to ruptured diverticula. 2. Thoracentesis. 3. Asthma. 4. Atrial fibrillation. 5. Carotid artery disease. 6. Chronic kidney disease, COPD, oxygen therapy 2 liters. 7. Diabetes mellitus. 8. Hypercholesterolemia. 9. Hypertension. 10. Hypothyroid. 11. Iron deficiency. 12. Lymphedema. 13. Morbid obesity. 14. [place] [address] PAIN MANAGEMENT CONSULTATION Name: SHANE CASTAÑEDA Room #: REG CLI Raji#: [id number] Admission: 07/17/19 ������������������ Attend Phys: Spring Glasgow MD Discharge: ������������������ Date of : 41 Report #: [id number] 15. Renal stones. 16. Valvular disease, moderate . PAST SURGICAL HISTORY: Colostomy repair 06/2009, exploratory laparotomy, lysis of adhesions, repair of ventral hernias, left leg surgery in 2013, thoracentesis x 2 in 06/2017. SOCIAL HISTORY: She is an remedial teacher, retired 10 years ago. REVIEW OF SYSTEMS: Generally good health, fatigue, weakness, wears glasses, cataract removal, voice changes, shortness of breath, history of atrial fibrillation, non-insulin dependent diabetes. PAIN CLINIC ASSESSMENT AND PQRS: 1. History of osteoarthritis. The patient is not being treated for rheumatoid arthritis. 2. Height 5 feet, 0 inches, weight 165 pounds, BMI 32.2. 3. Vital Signs: Blood pressure 115/65, pulse 65, respiratory rate 16, room air saturation 99%. 4. Pain intensity 06/15. 5. Fall risk. The patient fell in April. 6. Blood thinner. The patient is on a blood thinning medication, Eliquis for atrial fibrillation. 7. Hypertension. The patient is being treated for hypertension. 8. Opioids greater than 6 weeks. 9. Risk assessment tool, low for opioid use. 10. Functional assessment tool. 11. Recreational drug use. The patient denies. 12. Tobacco: The patient never smoked. 13. Alcohol. The patient denies use of frequent use of alcoholic beverages. PHYSICAL EXAMINATION: GENERAL: The patient is a well-developed, well-nourished, somewhat obese white female, appears her stated age. She is alert and oriented x 3. Her affect is appropriate. Speech is fluent. HEENT: Normocephalic, atraumatic. Extraocular eye muscles intact. The patient has oxygen 2 liters via nasal cannula. NECK: Without JVD. HEART: Regular rate today. Breath sounds somewhat decreased. ABDOMEN: Nontender. Bowel sounds present. EXTREMITIES: Upper extremity muscle strength judged to be 4+/5 for the major muscle groups in the upper extremity. The patient complains of pain and discomfort in the lower portion of her back with pain that is radiating down into the left leg in a L4-L5 dermatomal distribution. RECOMMENDATIONS: We discussed treatment options with the patient. The patient [facility] [address] [place] [address] PAIN MANAGEMENT CONSULTATION Name: SHANE CASTAÑEDA [id number] Admission: 07/17/19 ������������������ Attend Phys: Spring Glasgow MD Discharge: ������������������ Date of : 41 Report #: [id number] currently is on Eliquis. We will have the patient discontinue her Eliquis and then returned to the pain clinic at which time we will consider possibility of an epidural steroid injection. Risks and benefits of the procedure have been discussed. They could include, but are not limited to infection, worsening of pain, no improvement in pain, bleeding, nerve damage, increased muscle soreness. Overall, I think the patient will benefit from an epidural steroid injection. She will return to the Pain Clinic at which time we would then proceed with an epidural steroid injection. We would like to thank you for letting us participate in her care. We hope she continues to improve. ��������������������������������������������� <ELECTRONICALLY SIGNED> ���������������������������������������� By: Spring Glasgow MD ��������������������������������������������� 07/29/19 0854 [id number] 1326 Spring Glasgow MD /[facility]
== END ==
LOC: PAIN 07:01
DX: M54.5 Low back pain (principal); I48.91 Unspecified atrial fibrillation; J44.9 Chronic obstructive pulmonary disease, unspecified; I12.9 Hypertensive chronic kidney disease with stage 1 through stage 4 chronic kidney disease, or unspecified chronic kidney disease; E11.22 Type 2 diabetes mellitus with diabetic chronic kidney disease; N18.3 Chronic kidney disease, stage 3 (moderate); E78.00 Pure hypercholesterolemia, unspecified; E03.9 Hypothyroidism, unspecified

== ENCOUNTER → 2019-07-31 | Outpatient (CLI) | payer OTHER, BC ==
[~2019-07-31] VITALS: Ht 152.4 cm; Wt 73.7 kg
[~2019-07-31] MED LIST changes: +BREO ELLIPTA 21 EACH; +KEFLEX500 M1 PO; +ONDANSETRON HCL4 M2 PO; +PEPCID AC10 MG PO; +ULTRAM 50MG TAB50 MG PO
[2019-07-31 11:34] VITALS: BP 130/55
--- NOTE | 2019-07-31 11:58 | NUR ---
Pain Clinic Assessment: 1. History of Osteoarthritis: SPINE History of Rheumatoid Arthritis: NO 2. Height: 5 ft. 0 in. 152.4 cm. Weight: 162.4 lb. oz. 73.664 kg. Patient's BMI: 31.7 3. Vital Signs: BP: 130/55 Pulse: 75 Resp: 14 Temp: 02 Sat: 98 ECG Mon: 4. Pain Intensity: 5-6 5. Fall Risk: Dizziness: N Needs help standing or walking: Y Fallen in the last 3 months: N Fall risk comments: 6. Patient on Blood Thinner: eliquis 7. History of Hypertension: Y 8. Opioid Therapy greater than 6 weeks: N Opiate Contract Signed: 9. Risk Assessment Tool Provided: 10. Functional Assessment Tool: 11. Recreational Drug Use: Never Drug Type: Tobacco Use: Never Smoker Tobacco Type: Amount or Packs/day: How Many Years: Alcohol Use: No Frequency: Quant:
--- NOTE | 2019-08-16 08:26 | HPC ---
[facility] [place] [address] PAIN MANAGEMENT CONSULTATION Name: SHANE CASTAÑEDA Room #: REG CONG Lorraine.#: [id number] Admission: 07/31/19 Attend Phys: Spring Glasgow MD Discharge: Date of : 41 Report #: [id number] THIS REPORT FOR: //name// CC: Carolynn Glasgow DATE OF SERVICE: 07/31/2019 CHIEF COMPLAINT: Low back pain and osteoarthritis. HISTORY: The patient has been referred to the pain clinic for evaluation. She has pain, which started in April. It involves her left leg. Continues to have pain that radiates down into her leg with tightness involving the muscles in the lower extremity. She notes that the pain is exacerbated when she walks a bit. She has used ice to help decrease the discomfort. She rates her pain today as a 5-6/10. She has stopped taking her Eliquis medication and has returned to the pain clinic with the desire to undergo an epidural injection. ALLERGIES: No known drug allergies. CURRENT MEDICATIONS: Glucosamine, chondroitin, Xanax 150 mg at bedtime, losartan 50 mg, Lasix 20 mg, Eliquis 5 mg b.i.d., Synthroid 0.075 mg, Pulmicort 0.5 mg, desvenlafaxine 50 mg, alendronate 75/70, vitamin B12 2500 mcg, ascorbic acid, ProAir, diltiazem 360 mg, Actos 15 mg, multivitamins. PAIN CLINIC ASSESSMENT AND PQRS: 1. The patient has some osteoarthritic changes in her spine. She is not being treated for rheumatoid arthritis. 2. Height 5 feet 0 inches, weight 162 pounds, BMI is 31.7. 3. Vital Signs: Blood pressure 130/55, pulse 75, respiratory rate 14, room air saturation 98%. 4. Pain intensity, 5-6/10. 5. Fall history. The patient has not fallen in the last 3 months. 6. Blood thinner. The patient is on Eliquis, has stopped it with a desire to undergo an epidural injection today. 7. History of hypertension. The patient is being treated for hypertension. 8. Opioids greater than 6 weeks. 9. Risk assessment tool, low for opioid use. 10. Functional assessment tool. 11. Recreational drug use, the patient denies. 12. Tobacco, the patient has never smoked. 13. Alcohol, the patient denies frequent use of alcoholic beverages. PHYSICAL EXAMINATION: GENERAL: The patient is a well-developed, well-nourished, white female. Appears her stated age. She is obese. She is alert and oriented [place] [address] PAIN MANAGEMENT CONSULTATION Name: SHANE CASTAÑEDA Room #: REG [facility]..#: [id number] Admission: 07/31/19 Attend Phys: Spring Glasgow MD Discharge: Date of : 43 Report #: [id number] is appropriate. Speech is fluent. HEENT: Normocephalic, atraumatic. Extraocular eye muscles intact. Sclerae nonicteric. Mucous membranes moist. The patient is on 2 liters nasal cannula. NECK: Without JVD or adenopathy. HEART: Regular rate. CHEST: Breath sounds somewhat decreased. ABDOMEN: Nontender. Bowel sounds present. EXTREMITIES: Upper extremity muscle strength judged to be 4+/5 for the major muscle groups in the upper extremity. The patient complains of pain and discomfort in lower portion of her back with pain that is radiating down into the left leg in the L4-L5 dermatomal distribution. IMPRESSION: Lumbar radiculopathy. RECOMMENDATIONS: We discussed treatment options with the patient. Risks and benefits of an epidural steroid injection were again discussed. The possible complications of the procedure were reviewed. They include but are not limited to infection, worsening pain, no improvement in pain and the patient elects to proceed. PROCEDURE NOTE: The patient was taken to the procedure area. She was then assisted in getting on examination table. Her back was sterilely prepped with a Betadine solution. A 0.25% bupivacaine was infiltrated into the L4-L5 space. There was somewhat difficulty getting into this area given the amount of arthritis that was noted. The 17-gauge Tuohy was then advanced into the area of the L3-L4 interspace. There was no CSF, heme or paresthesia. Total of 80 mg Depo-Medrol, 40 mg triamcinolone and 3 mL of 0.25% bupivacaine was injected. The patient tolerated the procedure well. There were no complications. She remained in the pain clinic for an appropriate amount of time. A 20 seconds fluoroscopy time was used. She will follow up in the future as needed. We would like to thank you for letting us participate in her care. We hope she continues to improve. <ELECTRONICALLY SIGNED> By: Spring Glasgow MD 08/16/19 0826 [id number] [id number] Spring Glasgow MD /[facility]
== END | disposition home or self-care (01) ==
LOC: PAIN 07:07
DX: M54.16 Radiculopathy, lumbar region (principal); Z79.899 Other long term (current) drug therapy

== ENCOUNTER → 2019-08-16 | Outpatient (CLI) | payer OTHER, BC ==
[~2019-08-16] VITALS: Ht 152.4 cm; Wt 74.4 kg
[2019-08-16 13:31] VITALS: BP 107/58
--- NOTE | 2019-08-16 13:33 | NUR ---
Pain Clinic Assessment: 1. History of Osteoarthritis: SPINE History of Rheumatoid Arthritis: NO 2. Height: 5 ft. 0 in. 152.4 cm. Weight: 164.0 lb. oz. 74.390 kg. Patient's BMI: 32.0 3. Vital Signs: BP: 107/58 Pulse: 88 Resp: 18 Temp: 02 Sat: 94 ECG Mon: 4. Pain Intensity: 4 5. Fall Risk: Dizziness: N Needs help standing or walking: N Fallen in the last 3 months: N Fall risk comments: 6. Patient on Blood Thinner: mirela 7. History of Hypertension: Y 8. Opioid Therapy greater than 6 weeks: N Opiate Contract Signed: 9. Risk Assessment Tool Provided: 10. Functional Assessment Tool: 11. Recreational Drug Use: Never Drug Type: Tobacco Use: Never Smoker Tobacco Type: Amount or Packs/day: How Many Years: Alcohol Use: No Frequency: Quant:
--- NOTE | 2019-08-28 09:44 | HPC ---
[facility] [place] [address] PAIN MANAGEMENT CONSULTATION Name: SHANE CASTAÑEDA Room #: REG CONG Raji#: [id number] Admission: 08/16/19 Attend Phys: Spring Glasgow MD Discharge: Date of : 43 Report #: [id number] THIS REPORT FOR: //name// CC: Carolynn Glasgow DATE OF SERVICE: 08/16/2019 CHIEF COMPLAINT: Hip pain and leg pain. HISTORY: The patient is a 74-year-old female, who has been seen in the pain clinic because of lumbar radiculopathy as well as pain in her left hip. She states that the last epidural steroid injection was helpful. She has some decreased pain in the low back area, but still finds it is quite problematic. Pain in the left lateral hip increases with pressure. This appears to be the pain that is most problematic at this juncture. The patient has taken her Eliquis today. She is aware that she could not undergo an injection with a blood thinning medication in use at this juncture. She will stop her medication and then returned to the pain clinic with a desire of undergoing an epidural steroid injection/left greater trochanteric bursa injection. She had no complications from the last procedure. She notes that sitting can exacerbate her discomfort, particularly when she is sitting on the left side. Sometimes the pain improves with walking. She denies any new bowel or bladder dysfunction. CURRENT MEDICATIONS: Glucosamine/chondroitin, Xanax 150 mg at bedtime, losartan 50 mg, Lasix 20 mg, Eliquis 5 mg b.i.d., Synthroid 0.075 mg, Pulmicort 0.5 mg, desvenlafaxine 50 mg, alendronate 75/70, multivitamins B12 1200 mcg, ascorbic acid, ProAir, diltiazem 320 mg, Actos 15 mg, and multivitamins. ALLERGIES: No known drug allergies. PAIN CLINIC ASSESSMENT AND PQRS: 1. The patient has some pain and arthritic changes in her spine. She is not being treated for rheumatoid arthritis. 2. Pain intensity is 4/10. 3. Fall risk. The patient has not fallen in the last 3 months. 4. Blood thinner. The patient is on the blood thinning medication, Eliquis. 5. Hypertension. The patient is being treated for hypertension. 6. Opioids greater than 6 weeks. The patient is not on chronic opioid regimen. 7. Risk assessment tool, low for opioids. 8. Functional assessment tool. 9. Recreational drug use. The patient denies use of recreational drugs. 10. Tobacco: The patient has never smoked. 11. Alcohol. The patient denies frequent use of alcoholic beverages. [facility] [address] [place] [address] PAIN MANAGEMENT CONSULTATION Name: SHANE CASTAÑEDA Room #: REG CONG Alegria#: [id number] Admission: 08/16/19 Attend Phys: Spring Glasgow MD Discharge: Date of : 43 Report #: [id number] PHYSICAL EXAMINATION: GENERAL: The patient is a well-developed, well-nourished white female. She appears her stated age. She is obese. She is alert and oriented x 3. Her affect is appropriate. Speech is fluent. Height is 5 feet 0 inches, weight is 164 pounds, and BMI is 32. VITAL SIGNS: Blood pressure is 107/57, pulse is 88, respiratory rate is 18, and room air saturation 94%. HEENT: Normocephalic, atraumatic. Extraocular eye muscles intact. Sclerae nonicteric. Mucous membranes are moist. The patient is on 2 liters of oxygen via nasal cannula. NECK: Without adenopathy or JVD. HEART: Regular rate. CHEST: Sounds somewhat decreased. ABDOMEN: Nontender. Bowel sounds present. EXTREMITIES: Upper extremity muscle strength is judged to be 4+/5 for the major muscle groups in the upper extremity. The patient also complains of some pain and discomfort in the lower portion of her back that radiates down to the left leg in the L4-5 as well as L3-4 distribution. Palpation of the left greater trochanteric area causes the patient to wince and pull away. She states that this is a strong component of her pain. IMPRESSION: 1. History of lumbar radicular pain. 2. Left greater trochanteric bursitis. 3. History of diverticula. 4. Thoracentesis. 5. Asthma. 6. Atrial fibrillation. 7. Carotid artery disease. 8. Chronic kidney disease. 9. Chronic obstructive pulmonary disease, on oxygen 2 liters. 10. Diabetes mellitus. 11. Hypercholesterolemia. 12. Hypertension. 13. Hypothyroid. 14. Iron deficiency. 15. Lymphedema. 16. Morbid obesity. 17. Pleural effusion. 18. Renal stones. 19. Valvular disease. RECOMMENDATIONS: We have discussed treatment options with the patient. At this juncture, the patient will return to the pain clinic at which time she will undergo an injection in the area of the left greater trochanteric area. She will stop her Eliquis medication. She is aware that the possibility of a blood [address] [place] [address] PAIN MANAGEMENT CONSULTATION Name: SHANE CASTAÑEDA Room #: REG CONG [place]ria#: [id number] Admission: 08/16/19 Attend Phys: Spring Glasgow MD Discharge: Date of : 43 Report #: [id number] clot could develop while off of her medication. She will stop the medication 3 days prior to coming to the pain clinic. She would then undergo treatment with possibility of an epidural steroid or greater trochanteric injection. We would like to thank you for letting us to participate in her care. We hope she continues to improve. <ELECTRONICALLY SIGNED> By: Spring Glasgow MD 08/28/19 0944 [id number] 0415 Spring Glasgow MD /[facility]
== END ==
LOC: PAIN 06:40
DX: M54.16 Radiculopathy, lumbar region (principal); M70.62 Trochanteric bursitis, left hip; I10 Essential (primary) hypertension; J45.909 Unspecified asthma, uncomplicated; I48.91 Unspecified atrial fibrillation; I25.10 Atherosclerotic heart disease of native coronary artery without angina pectoris; J44.9 Chronic obstructive pulmonary disease, unspecified; E11.9 Type 2 diabetes mellitus without complications; E03.9 Hypothyroidism, unspecified; E66.01 Morbid (severe) obesity due to excess calories; J90 Pleural effusion, not elsewhere classified; N20.0 Calculus of kidney; Z79.891 Long term (current) use of opiate analgesic; Z79.899 Other long term (current) drug therapy; Y93.89 Activity, other specified

== ENCOUNTER → 2019-08-23 | Outpatient (CLI) | payer OTHER, BC ==
[~2019-08-23] VITALS: Ht 152.4 cm; Wt 75.2 kg
[2019-08-23 09:41] VITALS: BP 132/55
--- NOTE | 2019-08-23 09:55 | NUR ---
Pain Clinic Assessment: 1. History of Osteoarthritis: SPINE History of Rheumatoid Arthritis: NO 2. Height: 5 ft. 0 in. 152.4 cm. Weight: 165.8 lb. oz. 75.206 kg. Patient's BMI: 32.4 3. Vital Signs: BP: 132/55 Pulse: 83 Resp: 16 Temp: 02 Sat: 99 ECG Mon: 4. Pain Intensity: 7 5. Fall Risk: Dizziness: N Needs help standing or walking: N Fallen in the last 3 months: N Fall risk comments: 6. Patient on Blood Thinner: NAY 7. History of Hypertension: Y 8. Opioid Therapy greater than 6 weeks: N Opiate Contract Signed: 9. Risk Assessment Tool Provided: LOW RISK 0/3 10. Functional Assessment Tool: 43 11. Recreational Drug Use: Never Drug Type: Tobacco Use: Never Smoker Tobacco Type: Amount or Packs/day: How Many Years: Alcohol Use: No Frequency: Quant:
--- NOTE | 2019-09-13 08:14 | HPC ---
[facility] [place] [address] PAIN MANAGEMENT CONSULTATION Name: SHANE CASTAÑEDA Room #: REG CONG Raji#: [id number] Admission: 08/23/19 Attend Phys: Spring Glasgow MD Discharge: Date of : 43 Report #: [id number] THIS REPORT FOR: //name// CC: Carolynn Glasgow DATE OF SERVICE: 08/23/2019 CHIEF COMPLAINT: Pain in the hip and left leg. HISTORY: The patient is a 74-year-old female. The patient has pain in her left hip. She has had some pain in the low back area as well. Pain is in the left lateral portion of her hip and increases with pressure on the lateral portion of her hip. Pain is problematic. She was on a blood thinning medication, Eliquis. She has held this medication with the desire to undergo an injection today. She has returned to the pain clinic with a hope of undergoing an injection. Pain is in the area of the left greater trochanteric area. She has been informed that she has bursitis. She has had no complications from the procedures in the past. We would like to proceed with an injection of the affected side of the left bursa today. ALLERGIES: No known drug allergies. PAIN CLINIC ASSESSMENT AND PQRS: 1. The patient is not being treated for rheumatoid arthritis. She has some osteoarthritic changes involving her spine. 2. Height 5 feet 0 inch, weight 165 pounds, BMI is 32. 3. Vital signs: Blood pressure 132/55, pulse 83, respiratory rate 16, room air saturation 99%. 4. Pain intensity, 05/15. 5. Fall risk, the patient has not fallen since we saw her last. 6. Blood thinner, the patient is not taking Eliquis. She has been off of it for 3 days. 7. History of hypertension. The patient is being treated for hypertension. 8. Opioids greater than 6 weeks. Low risk for opioid use. 9. Functional assessment tool, . 10. Recreational drug use, the patient denies. 11. Tobacco, the patient has never smoked. 12. Alcohol, the patient denies frequent use of alcoholic beverages. PHYSICAL EXAMINATION: GENERAL: The patient is a well-developed, well-nourished, white female. Appears her stated age. She is alert and oriented x 3. She is obese. Her affect is appropriate. Speech is fluent. Height 5 feet 0 inches. HEENT: Normocephalic, atraumatic. Extraocular eye muscles intact. Sclerae nonicteric. Mucous membranes are moist. The patient is on 2 liters of oxygen [address] [address] PAIN MANAGEMENT CONSULTATION Name: SHANE CASTAÑEDA Room #: REG [facility].#: [id number] Admission: 08/23/19 Attend Phys: Spring Glasgow MD Discharge: Date of : 43 Report #: [id number] via nasal cannula. NECK: Without adenopathy or JVD. HEART: Regular rate. CHEST: Decreased breath sounds. ABDOMEN: Nontender. Bowel sounds present. EXTREMITIES: Upper extremity muscle strength judged to be 4+/5 for the major muscle groups in the upper extremity. The patient complains of some pain and discomfort in lower portion of her back and notes that pain radiates down to the left leg in the L4-L5 dermatomal distribution as well as L3-L4. Palpation of the left greater trochanteric area causes the patient to wince and pull away. States that this is a strong component of her pain. IMPRESSION: 1. History of lumbar radiculopathy. 2. Left greater trochanteric bursitis. 3. History of diverticula. 4. Thoracentesis. 5. Asthma. 6. Atrial fibrillation. 7. Carotid artery disease. 8. Chronic kidney disease. 9. Chronic obstructive pulmonary disease, on 2 liters oxygen. 10. Diabetes mellitus. 11. Hypercholesterolemia. 12. Hypertension. 13. Hypothyroid. 14. Iron deficiency. 15. Lymphedema. 16. Morbid obesity. 17. Pleural effusion. 18. Renal stones. 19. Valvular disease. RECOMMENDATIONS: We discussed treatment options with the patient. Risks and benefits of the injection were discussed and reviewed. Possibility of bleeding, infection, worsening pain, no improvement in pain were all reviewed and the patient elects to proceed. PROCEDURE NOTE: The patient was taken to the procedure area. She was then assisted in getting on examination table. Her left side was in the up position. She is in the right lateral decubitus position. Palpation of the left greater trochanteric area and area of the bursa reproduced her pain and discomfort. This area was then sterilely prepped with a chlorhexidine solution. It was allowed to dry. A second prep was performed. A 20-gauge spinal needle was then advanced into the area of the left greater trochanteric bursa. Aspiration was negative. A total of 80 mg Depo-Medrol and 7 mL of 0.5% bupivacaine was [facility] [address] [place] [address] PAIN MANAGEMENT CONSULTATION Name: SHANE CASTAÑEDA Room #: REG CL Lorraine#: [id number] Admission: 08/23/19 Attend Phys: Spring Glasgow MD Discharge: Date of : 43 Report #: [id number] injected. The patient tolerated the procedure well. There were no complications. Her pain decreased to 0 at the time of discharge. She will follow up in the future as needed. We would like to thank you for letting us participate in her care. We hope she continues to improve. Fluoroscopy was used to identify the area. <ELECTRONICALLY SIGNED> By: Spring Glasgow MD 09/13/19 0814 [id number] [id number] Spring Glasgow MD /[facility]
== END | disposition home or self-care (01) ==
LOC: PAIN 06:55
DX: M25.552 Pain in left hip (principal); M70.62 Trochanteric bursitis, left hip; I12.9 Hypertensive chronic kidney disease with stage 1 through stage 4 chronic kidney disease, or unspecified chronic kidney disease; E11.22 Type 2 diabetes mellitus with diabetic chronic kidney disease; N18.9 Chronic kidney disease, unspecified; I48.91 Unspecified atrial fibrillation; J44.9 Chronic obstructive pulmonary disease, unspecified; E78.00 Pure hypercholesterolemia, unspecified; E03.9 Hypothyroidism, unspecified; E66.01 Morbid (severe) obesity due to excess calories; Z87.442 Personal history of urinary calculi; Z98.890 Other specified postprocedural states; Z79.899 Other long term (current) drug therapy; Z79.01 Long term (current) use of anticoagulants; Z87.19 Personal history of other diseases of the digestive system

== ENCOUNTER 2019-08-25 14:27 | Emergency (ER) | payer OTHER, BC ==
[~2019-08-25] VITALS: Ht 152.4 cm; Wt 74.4 kg
[~2019-08-25 14:27] MED LIST changes: -KEFLEX500 M1 PO; -ONDANSETRON HCL4 M2 PO; -PEPCID AC10 MG PO; -ULTRAM 50MG TAB50 MG PO
[2019-08-25 15:10] LABS: BASOPHILS 0.5 % (0.0-2.0); EOSINOPHILS 0.4 % (0.0-3.0); HEMATOCRIT 31.1 % (37.0-47.0); HEMOGLOBIN 10.4 gm/dL (12.0-15.0); LYMPHOCYTES 8.1 % (24.0-44.0); MCH 33.1 pg (26.0-34.0); MCHC 33.4 g/dL (28.0-37.0); MCV 99.2 fL (80.0-100.0); MONOCYTES 4.6 % (1.0-8.0); PLATELET COUNT 163 thou/uL (150-400); POLYS 86.4 % (36.0-66.0); RBC 3.14 mil/uL (4.20-5.00); WBC 4.6 thou/uL (4.0-11.0)
[2019-08-25 15:17] LABS: CALCIUM 9.6 mg/dL (8.5-10.1); CREATININE 1.3 mg/dL (0.6-1.0); POTASSIUM 4.6 mmol/L (3.5-5.1)
[2019-08-25 15:23] LABS: URINE BILIRUBIN NEGATIVE (Negative); URINE BLOOD 2+ (Negative); URINE CLARITY CLEAR; URINE COLOR YELLOW; URINE GLUCOSE-RANDOM* NEGATIVE (Negative); URINE KETONES NEGATIVE (Negative); URINE LEUKOCYTES 2+ (Negative); URINE NITRITE POSITIVE (Negative); URINE PROTEIN (DIPSTICK) 1+ (Negative); URINE UROBILINOGEN 0.2 E.U./dl (0.2-1.0)
[2019-08-25 15:23] LABS: ALBUMIN 3.2 g/dL (3.4-5.0); TOTAL BILIRUBIN 0.5 mg/dL (<0.1-1.0); TOTAL PROTEIN 7.9 g/dL (6.4-8.2)
[2019-08-25 15:36] LABS: CASTS None Seen /LPF (None Seen); SQUAMOUS 0-3 Few /LPF (0-3); TRANSITIONAL EPITHEL CELL 0-3 Few /LPF (None Seen)
[2019-08-25 15:37] LABS: BACTERIA >30 Many /HPF (None Seen); CRYSTALS None Seen /LPF (None Seen); URINE RBC 0-2 Rare /HPF (0-2); URINE WBC 6-15 Few /HPF (0-5)
[2019-08-25] MEDS ORDERED: KEFLEX500 M1 PO (15:51)
[2019-08-25] MEDS ORDERED: ONDANSETRON HCL4 M2 PO ×2 (15:54→15:55)
[2019-08-25 16:20] VITALS: BP 127/57
[2019-09-20] MEDS ORDERED: PEPCID AC10 MG PO (09:33)
[2019-09-20] MEDS ORDERED: ULTRAM 50MG TAB50 MG PO (09:39)
== END 2019-08-25 16:20 | disposition home or self-care (01) ==
LOC: ER 14:27
PROVIDERS: Emergency Medicine
DX: N39.0 Urinary tract infection, site not specified (principal); Z90.49 Acquired absence of other specified parts of digestive tract; Z87.442 Personal history of urinary calculi

== ENCOUNTER → 2019-09-20 | Outpatient (CLI) | payer OTHER, BC ==
[~2019-09-20] VITALS: Ht 152.4 cm; Wt 76.5 kg
[~2019-09-20] MED LIST changes: +CLARITIN10 MG PO; +KEFLEX500 M1 PO; +ONDANSETRON HCL4 M2 PO; +PEPCID AC10 MG PO; +ULTRACET TABLET1 TAB PO; +ULTRAM 50MG TAB50 MG PO
[2019-09-20 09:13] VITALS: BP 137/56
--- NOTE | 2019-09-20 09:34 | NUR ---
Pain Clinic Assessment: 1. History of Osteoarthritis: SPINE History of Rheumatoid Arthritis: NO 2. Height: 5 ft. 0 in. 152.4 cm. Weight: 168.6 lb. oz. 76.476 kg. Patient's BMI: 32.9 3. Vital Signs: BP: 137/56 Pulse: 86 Resp: 14 Temp: 02 Sat: 94 ECG Mon: 4. Pain Intensity: 6 5. Fall Risk: Dizziness: Y Needs help standing or walking: Y Fallen in the last 3 months: N Fall risk comments: 6. Patient on Blood Thinner: TAWNYAQUIS 7. History of Hypertension: Y 8. Opioid Therapy greater than 6 weeks: N Opiate Contract Signed: 9. Risk Assessment Tool Provided: LOW RISK 0/3 10. Functional Assessment Tool: 43/ 11. Recreational Drug Use: Never Drug Type: Tobacco Use: Former Smoker Tobacco Type: Amount or Packs/day: How Many Years: Alcohol Use: No Frequency: Quant:
--- NOTE | 2019-11-05 14:24 | HPC ---
[facility] [place] [address] PAIN MANAGEMENT CONSULTATION Name: SHANE CASTAÑEDA Room #: REG Trey Lorraine.#: [id number] Admission: 09/20/19 Attend Phys: Spring Glasgow MD Discharge: Date of : 43 Report #: [id number] THIS REPORT FOR: //name// CC: Carolynn Glasgow DATE OF SERVICE: 09/20/2019 CHIEF COMPLAINT: Hip and leg pain with pain down into the ankles. HISTORY: The patient is a 74-year-old female who has been seen in the pain clinic because of chronic pain and lumbar radiculopathy. She has undergone epidural steroid injections in the past. She has also had some pain in the left intertrochanteric area. She returns today indicating that her pain still is problematic. She is having pain that she rates it as a 6/10. Pain is exacerbated when she is walking as well as doing other activities. Pain has been quite problematic since 04/2019. She has returned to the pain clinic for further evaluation. She was seen in the Emergency Room because of elevated temperatures. There was some question about a bladder infection. She is trying the conservative approach with tramadol at this juncture. ALLERGIES: No known drug allergies. CURRENT MEDICATIONS: Pepcid 10 mg, Zofran 4 mg, Breo Ellipta 200/20, glucosamine chondroitin, Cozaar 50 mg, Lasix 20 mg, Eliquis 5 mg b.i.d., Synthroid 0.75 mg, Pulmicort 0.5 mg, desvenlafaxine ER 50 mg, alendronate 70 mg weekly, vitamin B12 2500, diltiazem ER 360 mg, Actos 15 mg, multivitamin. PAIN CLINIC ASSESSMENT AND PQRS: 1. The patient does have a history of osteoarthritic changes in her back. She is not being treated for rheumatoid arthritis. 2. Height 5 feet 0 inch, weight 168 pounds, BMI is 32.9. 3. Vital signs: Blood pressure 137/56, pulse 86, respiratory rate 14, room air saturation 94%. 4. Pain intensity, 04/15. 5. Fall history. The patient has not fallen in the last 3 months. 6. Blood thinner. The patient is on Eliquis. 7. Hypertension. The patient is being treated for hypertension. 8. Opioids greater than 6 weeks. 9. Risk assessment tool, low for opioid use. 10. Functional assessment tool, . 11. Recreational drug use. The patient denies. 12. Alcohol. The patient denies frequent use of alcoholic beverages. PHYSICAL EXAMINATION: GENERAL: The patient is a well-developed, well-nourished, white female. [address] [address] PAIN MANAGEMENT CONSULTATION Name: SHANE CASTAÑEDA Room #: REG CLTrey Alegria#: [id number] Admission: 09/20/19 Attend Phys: Spring Glasgow MD Discharge: Date of : 43 Report #: [id number] Appears her stated age. She is alert and oriented x 3. She is obese. Her affect is appropriate. Speech is fluent. HEENT: Normocephalic. The patient is on oxygen via nasal cannula. NECK: Without adenopathy or JVD. HEART: Regular rate. LUNGS: Decreased sounds. ABDOMEN: Protuberant. Bowel sounds present. EXTREMITIES: Upper extremity muscle strength judged to be 4+/5 for the major muscle groups in the upper extremity. The patient complains of pain and discomfort in lower portion of her back that is radiating down into her leg in the L4-L5 dermatomal distribution as well as the L3-L4 dermatomal distribution. Palpation of the left greater trochanteric area causes the patient to pull away. IMPRESSION: 1. History of lumbar radiculopathy. 2. Left greater trochanteric bursitis. 3. History of diverticula. 4. Thoracentesis. 5. Asthma. 6. Atrial fibrillation. 7. Carotid artery disease. 8. Chronic kidney disease. 9. Chronic obstructive pulmonary disease, on 2 liters oxygen. 10. Diabetes mellitus. 11. Hypercholesterolemia. 12. Hypertension. 13. Hypothyroidism. 14. Iron deficiency. 15. Lymphedema. 16. Morbid obesity. 17. Pleural effusion history. 18. Renal stones. 19. Valvular disease. RECOMMENDATIONS: We discussed treatment options with the patient. At this juncture, we will continue with her medications. The patient will return to the pain clinic in the near future, at which time she will consider an epidural steroid injection. The risks and benefits of her current medications were reviewed. She will take tramadol 50 mg 1 p.o. q.4-6 hours. She found that this medication caused some sedation and problems. We will try the patient on a milder medication. She will take Ultracet, which is tramadol 37.5 mg with 325 mg of Tylenol. Hopefully, she will find that this medication is helpful and more efficacious. She will call us if she has any concerns. [address] [address] PAIN MANAGEMENT CONSULTATION Name: SHANE CASTAÑEDA Room #: REG CONG Alegria#: [id number] Admission: 09/20/19 Attend Phys: Spring Glasgow MD Discharge: Date of : 43 Report #: [id number] We would like to thank you for letting us participate in her care. We hope she continues to improve. <ELECTRONICALLY SIGNED> By: Spring Glasgow MD 11/05/19 1424 [id number] 0207 Spring Glasgow MD /PMT
== END ==
LOC: PAIN 06:45
DX: M54.16 Radiculopathy, lumbar region (principal); K57.30 Diverticulosis of large intestine without perforation or abscess without bleeding; J44.9 Chronic obstructive pulmonary disease, unspecified; I48.91 Unspecified atrial fibrillation; E11.22 Type 2 diabetes mellitus with diabetic chronic kidney disease; I12.9 Hypertensive chronic kidney disease with stage 1 through stage 4 chronic kidney disease, or unspecified chronic kidney disease; N18.9 Chronic kidney disease, unspecified; E78.00 Pure hypercholesterolemia, unspecified; E03.9 Hypothyroidism, unspecified; I89.0 Lymphedema, not elsewhere classified; N20.0 Calculus of kidney

== ENCOUNTER → 2019-09-25 | Outpatient (CLI) | payer OTHER, BC ==
[~2019-09-25] VITALS: Ht 152.4 cm; Wt 76.2 kg
[2019-09-25 08:47] VITALS: BP 133/55
--- NOTE | 2019-10-01 09:25 | HPC ---
[facility] [place] [address] PAIN MANAGEMENT CONSULTATION Name: SHANE CASTAÑDEA Room #: REG Trey Peters.#: [id number] Admission: 09/25/19 Attend Phys: Spring Glasgow MD Discharge: Date of : 43 Report #: [id number] THIS REPORT FOR: //name// CC: Carolynn Glasgow DATE OF SERVICE: 09/25/2019 CHIEF COMPLAINT: Left hip pain with pain down in the left buttocks and posterior thigh down into the back of the knee and with pain into the calf. HISTORY: The patient is a 74-year-old female who has been followed in the pain clinic because of chronic pain and discomfort. She has undergone epidural steroid injections in the past. She has noted a return of pain and discomfort in her low back with pain radiating down the left posterior area in the L5 and in the lower portion of her back and down into her leg. She has undergone epidural steroid injections in the past. She found that those have been beneficial. She has returned today with hopes of undergoing treatment to help quell the pain and discomfort, which she is having down the back and posterior portion of her leg with some weakness. ALLERGIES: No known drug allergies. CURRENT MEDICATIONS: Include glucosamine/chondroitin, Xanax at bedtime, losartan 50 mg, Lasix 20 mg, Eliquis 5 mg b.i.d., Synthroid 0.075 mg, Pulmicort 0.5 mg, desvenlafaxine 50 mg, alendronate 75/70, multivitamins B12 1200 mcg, ascorbic acid, ProAir, diltiazem 325 mg, Actos 15 mg, and multi vitamins. PAIN CLINIC ASSESSMENT/PQRS: 1. The patient does have pain and arthritis in her spine. She is not being treated for rheumatoid arthritis. 2. Height 5 feet, weight 168 pounds, BMI is 32.8. 3. Vital signs: Blood pressure 133/55, pulse 69, respiratory rate 18, room air saturation 98%. 4. Pain intensity 04/15. 5. Fall history: The patient has not fallen in the last 3 months. 6. Blood thinner. The patient is on Eliquis and has stopped taking the Eliquis medication. 7. Hypertension. The patient is being treated for hypertension. 8. Opioids greater than 6 weeks. The patient received medication from one source the pain clinic. Low risk for opioid use. 9. Functional assessment tool . 10. Recreational drug use: The patient denies. 11. Tobacco: The patient is a former smoker. 12. Alcohol. The patient denies use of alcoholic beverages on a significant amount at this juncture. [address] [address] PAIN MANAGEMENT CONSULTATION Name: SHANE CASTAÑEDA Room #: REG CL Georgette..#: [id number] Admission: 09/25/19 Attend Phys: Spring Glasgow MD Discharge: Date of : 43 Report #: [id number] PHYSICAL EXAMINATION: GENERAL: The patient is a well-developed, well-nourished white female. Appears her stated age. She is alert and oriented x 3. She is obese. Her affect is appropriate. Speech is fluent. HEENT: Normocephalic, atraumatic. Extraocular eye muscles intact. Sclerae nonicteric. The patient is on oxygen. She is receiving that via nasal cannula. NECK: Without adenopathy. HEART: Regular rate. LUNGS: Decreased breath sounds. ABDOMEN: Nontender. EXTREMITIES: Upper extremity muscle strength judged to be 4+/5 for the major muscle groups in the upper extremity. The patient complains of pain and discomfort in lower portion of her back with pain that is radiating down into the L5-S1 dermatomal distribution at this juncture. The patient has some improved pain in the left hip area where she has had trochanteric bursitis. IMPRESSION: 1. History of lumbar radiculopathy. 2. Left greater trochanter bursitis, history. 3. History of diverticula. 4. History of thoracentesis. 5. Asthma. 6. Atrial fibrillation. 7. Carotid artery disease. 8. Chronic kidney disease. 9. Chronic obstructive pulmonary disease, on 2 liters oxygen. 10. Diabetes. 11. Hypercholesterolemia. 12. Hypertension. 13. Hypothyroidism. 14. Iron deficiency. 15. Lymphedema. 16. Morbid obesity. 17. Pleural effusion history. 18. Renal stones. 19. Valvular disease. RECOMMENDATIONS: We discussed treatment options with the patient. Risks and benefits of an epidural steroid injection were discussed. They could include but are not limited to infection, worsening pain, no improvement in pain, bleeding, nerve damage and the patient elects to proceed. PROCEDURE NOTE: The patient was taken to the procedure area. She was then assisted in getting on the examination table. A 25-gauge needle was then used to anesthetize the area in the L5-S1 area. A 17-gauge Deisy with loss of [facility] [address] [place] [address] PAIN MANAGEMENT CONSULTATION Name: SHANE CASTAÑEDA [id number] Admission: 09/25/19 Attend Phys: Spring Glasgow MD Discharge: Date of : 41 Report #: [id number] resistance technique was used to gain access to the epidural space. Fluoroscopy using anterior, posterior imaging were undertaken. The patient tolerated the procedure well. A total of 80 mg Depo-Medrol, 40 mg triamcinolone and 2 mL of 0.25% bupivacaine was injected. Total of 9 seconds fluoroscopy was utilized. The patient will follow up in the future as needed. We would like to thank you for letting us participate in her care. Her pain score was 0 at the time of discharge. She will resume use of her Eliquis tonight. <ELECTRONICALLY SIGNED> By: Spring Glasgow MD 10/01/19 0925 0928 0017 Spring Glasgow MD /nt
== END | disposition home or self-care (01) ==
LOC: PAIN 06:58
DX: M54.16 Radiculopathy, lumbar region (principal); G89.29 Other chronic pain; M70.62 Trochanteric bursitis, left hip; I12.9 Hypertensive chronic kidney disease with stage 1 through stage 4 chronic kidney disease, or unspecified chronic kidney disease; E11.22 Type 2 diabetes mellitus with diabetic chronic kidney disease; N18.9 Chronic kidney disease, unspecified; E78.00 Pure hypercholesterolemia, unspecified; J44.9 Chronic obstructive pulmonary disease, unspecified; I48.91 Unspecified atrial fibrillation; E03.9 Hypothyroidism, unspecified; D50.9 Iron deficiency anemia, unspecified; E66.01 Morbid (severe) obesity due to excess calories; Z98.890 Other specified postprocedural states; Z79.899 Other long term (current) drug therapy; Z87.19 Personal history of other diseases of the digestive system; Z87.442 Personal history of urinary calculi; Z68.32 Body mass index [BMI] 32.0-32.9, adult; Z79.01 Long term (current) use of anticoagulants; Z87.891 Personal history of nicotine dependence

== ENCOUNTER → 2019-10-25 | Outpatient (CLI) | payer OTHER, BC ==
[~2019-10-25] VITALS: Ht 152.4 cm; Wt 76.7 kg
[2019-10-25 10:13] VITALS: BP 139/59
--- NOTE | 2019-10-25 10:15 | NUR ---
Pain Clinic Assessment: 1. History of Osteoarthritis: SPINE History of Rheumatoid Arthritis: NO 2. Height: 5 ft. 0 in. 152.4 cm. Weight: 169.0 lb. oz. 76.658 kg. Patient's BMI: 33.0 3. Vital Signs: BP: 139/59 Pulse: 83 Resp: 19 Temp: 02 Sat: 93 ECG Mon: 4. Pain Intensity: 7 5. Fall Risk: Dizziness: N Needs help standing or walking: Y Fallen in the last 3 months: N Fall risk comments: WHEELCHAIR FOR LONG DISTANCES- USES CANE AT HOME 6. Patient on Blood Thinner: ELIQUIS 7. History of Hypertension: Y 8. Opioid Therapy greater than 6 weeks: N Opiate Contract Signed: 9. Risk Assessment Tool Provided: LOW RISK 0/3 10. Functional Assessment Tool: 43 11. Recreational Drug Use: Never Drug Type: Tobacco Use: Former Smoker Tobacco Type: Amount or Packs/day: How Many Years: Alcohol Use: No Frequency: Quant:
--- NOTE | 2019-11-05 14:24 | HPC ---
[facility] [place] [address] PAIN MANAGEMENT CONSULTATION Name: SHANE CASTAÑEDA Room #: REG Trey Lorraine.#: [id number] Admission: 10/25/19 Attend Phys: Spring Glasgow MD Discharge: Date of : 43 Report #: [id number] THIS REPORT FOR: //name// CC: Carolynn Glasgow DATE OF SERVICE: 10/25/2019 CHIEF COMPLAINT: Back pain, left hip pain and calf pain. HISTORY: The patient is a 74-year-old female who has been followed in the pain clinic because of chronic pain. She has undergone epidural steroid injections. The patient has returned with the desire to continue with her current pain medication. She feels that the Ultracet medication 3 times a day is helpful. It is not causing her any oversedation or complications. She rates her pain as a 7/10 at this point. She still has pain that radiates down to the lower back and down to the maxillary legs. She has been using tramadol. She found that medication was a little bit overpowering. She finds that the use of Ultracet 37.5 mg is better without side effects. ALLERGIES: No known drug allergies. CURRENT MEDICATIONS: Glucosamine/chondroitin, Xanax at bedtime, losartan 50 mg, Lasix 20 mg, Eliquis 5 mg, Synthroid 0.075 mg, Pulmicort 0.5 mg, desvenlafaxine 50 mg, alendronate 75/70, multivitamins B12 1200 mcg, ascorbic acid, ProAir, diltiazem 325 mg, Actos 15 mg and multivitamins. PAIN CLINIC ASSESSMENT AND PQRS: 1. The patient does have pain and arthritis in her spine. She is not being treated for rheumatoid arthritis. 2. Height 5 feet 0 inches, weight 169 pounds, BMI is 33.0. 3. Vital signs: Blood pressure 139/59, pulse 83, respiratory rate 19, room air saturation 93%. 4. Pain intensity 05/15. 5. Fall history. The patient is in wheelchair, which she uses when she goes long distances. She uses a cane at home. She has not fallen. 6. Blood thinner. The patient is on Eliquis. 7. Hypertension. The patient is being treated for hypertension. 8. Opioids greater than 6 weeks. The patient received medication from one source, the pain clinic. 9. Risk assessment tool, low for opioid use. 10. Functional assessment tool 43/. 11. Recreational drugs: The patient denies. 12. Tobacco: The patient is a former smoker. 13. Alcohol. The patient denies use of alcoholic beverages. [address] [address] PAIN MANAGEMENT CONSULTATION Name: SHANE CASTAÑEDA Room #: REG [facility]..#: [id number] Admission: 10/25/19 Attend Phys: Spring Glasgow MD Discharge: Date of : 43 Report #: [id number] PHYSICAL EXAMINATION: GENERAL: The patient is a well-developed, well-nourished white female. Appears her stated age. She is alert and oriented x 3. She is obese. Her affect is appropriate. Speech is fluent. She is in a wheelchair. HEENT: Normocephalic, atraumatic. Extraocular eye muscles intact. The patient is on oxygen. She has a nasal cannula in place. NECK: Without adenopathy or JVD. HEART: Regular. LUNGS: Decreased breath sounds. ABDOMEN: Nontender. EXTREMITIES: Upper extremity muscle strength judged to be 4+/5 for the major muscle groups in the upper extremity. The patient continues to have pain and discomfort in lower portion of her back in the L5-S1 dermatomal distribution. She has had some pain and discomfort in the left trochanteric area secondary to bursitis. IMPRESSION: 1. History of lumbar radiculopathy. 2. Left greater trochanteric bursitis, improved. 3. History of diverticula. 4. History of thoracentesis. 5. Asthma. 6. Atrial fibrillation. 7. Carotid artery disease. 8. Chronic kidney disease. 9. Chronic obstructive pulmonary disease, on 2 liters of oxygen. 10. Diabetes. 11. Hypercholesterolemia. 12. Hypertension. 13. Hypothyroidism. 14. Iron deficiency. 15. Lymphedema. 16. Morbid obesity. 17. Pleural effusion history. 18. Renal stones. 19. Valvular disease. RECOMMENDATIONS: We discussed treatment options with the patient. At this juncture, we will continue with her current medications. A script for the tramadol 37.5 mg/325 have been rewritten. The patient will take 1 p.o. t.i.d. She will call us if she has any concerns. Overall, she feels that things are going reasonably well. Her breathing appears to be reasonably stable. She is on 2 liters of oxygen. She is aware that opioid medications can become less effective as time goes by secondary to development of tolerance. She is not feeling that these medications are causing any significant sedation. Some of the other medications she has taken in the past have been more problematic. She [address] [address] PAIN MANAGEMENT CONSULTATION Name: SHANE CASTAÑEDA Room #: REG CLTrey Alegria#: [id number] Admission: 10/25/19 Attend Phys: Spring Glasgow MD Discharge: Date of : 43 Report #: [id number] is feeling that this medication is beneficial and would like to continue. A script for the Ultracet has been written. She will call us if she has any concerns. We would like to thank you for letting us participate in her care. We hope she continues to improve. <ELECTRONICALLY SIGNED> By: Spring Glasgow MD 11/05/19 1424 0145 1150 Spring Glasgow MD /nt
== END ==
LOC: PAIN 10-23 10:50
DX: M54.16 Radiculopathy, lumbar region (principal); K57.30 Diverticulosis of large intestine without perforation or abscess without bleeding; I48.91 Unspecified atrial fibrillation; I65.29 Occlusion and stenosis of unspecified carotid artery; J44.9 Chronic obstructive pulmonary disease, unspecified; E11.22 Type 2 diabetes mellitus with diabetic chronic kidney disease; I12.9 Hypertensive chronic kidney disease with stage 1 through stage 4 chronic kidney disease, or unspecified chronic kidney disease; N18.9 Chronic kidney disease, unspecified; E03.9 Hypothyroidism, unspecified; I89.0 Lymphedema, not elsewhere classified; E66.01 Morbid (severe) obesity due to excess calories; J90 Pleural effusion, not elsewhere classified; N20.0 Calculus of kidney

== ENCOUNTER → 2019-11-13 | Outpatient (CLI) | payer OTHER, BC ==
[~2019-11-13] VITALS: Ht 152.4 cm; Wt 73.7 kg
[2019-11-13 10:54] VITALS: BP 140/62
--- NOTE | 2019-11-13 11:21 | NUR ---
Pain Clinic Assessment: 1. History of Osteoarthritis: SPINE History of Rheumatoid Arthritis: NO 2. Height: 5 ft. 0 in. 152.4 cm. Weight: 162.4 lb. oz. 73.664 kg. Patient's BMI: 31.7 3. Vital Signs: BP: 140/62 Pulse: 84 Resp: 14 Temp: 02 Sat: 95 ECG Mon: 4. Pain Intensity: 6-7 5. Fall Risk: Dizziness: N Needs help standing or walking: Y Fallen in the last 3 months: N Fall risk comments: WHEELCHAIR FOR LONG DISTANCES- USES CANE AT HOME 6. Patient on Blood Thinner: TAWNYAQUIS 7. History of Hypertension: Y 8. Opioid Therapy greater than 6 weeks: N Opiate Contract Signed: 9. Risk Assessment Tool Provided: LOW RISK 0/3 10. Functional Assessment Tool: 43 11. Recreational Drug Use: Never Drug Type: Tobacco Use: Former Smoker Tobacco Type: Amount or Packs/day: How Many Years: Alcohol Use: No Frequency: Quant:
== END | disposition home or self-care (01) ==
LOC: PAIN 06:47
DX: M54.16 Radiculopathy, lumbar region (principal); Z87.891 Personal history of nicotine dependence; Z79.899 Other long term (current) drug therapy

== ENCOUNTER → 2019-12-25 | Outpatient (CLI) | payer OTHER, BC ==
[~2019-12-25] VITALS: Ht 152.4 cm; Wt 74.6 kg
--- NOTE | ~2019-12-25 | HPC ---
[facility] [address] [place] [address] PAIN MANAGEMENT CONSULTATION Name: SHANE CASTAÑEDA Room #: REG Trey Peters.#: [id number] Admission: 12/25/19 Attend Phys: Spring Glasgow MD Discharge: Date of : 43 Report #: [id number] THIS REPORT FOR: cc: Carolynn Arthur DNP, Mary E. DNP Brown, N. Wayne MD ~ CC: Carolynn Glasgow DATE OF SERVICE: 12/25/2019 CHIEF COMPLAINT: Continued low back pain. HISTORY: The patient is a 74-year-old female who has been seen in the Pain Clinic because of chronic pain and discomfort. She has undergone epidural steroid injections in the past. They have been beneficial. She returns today indicating that she still is having pain down in her left as well as her right leg. Pain radiates all the way down to the ankles. Since 04/2019, the pain has been problematic. She describes it as sore, aching, cramping and she experiences some numbness. She rates her pain as a 5/10. Walking and standing can be problematic. She has noted some improvement with the use of medications. Heat, lying down and sitting can be beneficial as well. She underwent an epidural steroid injection at the last visit. She is still having pain, which is problematic. She feels that things may have changed. She would like to consider an MRI of her low back area. She feels that there have been some changes and the back pain has gotten progressively worse. ALLERGIES: No known drug allergies. CURRENT MEDICATIONS: Glucosamine/chondroitin, Xanax at bedtime, losartan 50 mg, Lasix 20 mg, Eliquis 5 mg, Synthroid 0.075 mg, Pulmicort 0.5 mg, desvenlafaxine 50 mg, alendronate 75/70, vitamins B12 1200 mcg, ascorbic acid, ProAir, diltiazem 325 mg, Actos 15 mg, and multivitamins. PAIN CLINIC ASSESSMENT/PQRS: 1. The patient has some pain and discomfort involving her low back and spine. She is not being treated for rheumatoid arthritis. 2. Height 5 feet 0, weight 164 pounds, BMI is 32.1. 3. Vital Signs: Blood pressure 134/69, pulse 81, respiratory rate 14, and room air saturation is 100%. 4. Pain intensity, 5/10. 5. Fall History: The patient has not fallen. She is using a wheelchair for long distances and uses a cane to ambulate at home. 6. Blood thinner. The patient is on a blood thinning medication, Eliquis. 7. Hypertension. The patient is being treated for hypertension. 8. Opioids greater than 6 weeks. The patient is not on an opioid regimen. [address] [address] PAIN MANAGEMENT CONSULTATION Name: SHANE CASTAÑEDA Room #: REG CLI [facility].#: [id number] Admission: 12/25/19 Attend Phys: Spring Glasgow MD Discharge: Date of : 43 Report #: [id number] 9. Risk assessment tool, low for opioid use. 10. Functional assessment tool, 43/70. 11. Recreational drug use: The patient denies. 12. Tobacco: The patient is a former smoker. 13. Alcohol. The patient denies frequent use of alcoholic beverages. PHYSICAL EXAMINATION: GENERAL: The patient is a well-developed, well-nourished white female. Appears her stated age. She is alert and oriented x 3. Her affect is appropriate. Speech is fluent. HEENT: Normocephalic, atraumatic. The patient is somewhat obese. She is in a wheelchair. HEENT: Her sclerae are nonicteric. Mucous membranes are moist. NECK: Without adenopathy or JVD. HEART: Regular rate. LUNGS: Generally clear to auscultation. ABDOMEN: Nontender. EXTREMITIES: Upper extremity muscle strength judged to be 4+/5 for the major muscle groups in the upper extremity. The patient has pain and discomfort in lower portion of her back with pain that radiates down the L5-S1 dermatomal distribution involving her legs, which is most problematic on the left side. She has a history of left trochanteric bursitis. IMPRESSION: 1. History of lumbar radiculopathy. 2. History of left greater trochanter bursitis. 3. History of thoracentesis. 4. Asthma. 5. Atrial fibrillation history. 6. Carotid artery disease. 7. Chronic kidney disease. 8. Chronic obstructive pulmonary disease, on 2 liters of oxygen. 9. Diabetes. 10. Hypercholesterolemia. 11. Hypertension. 12. Hypothyroidism. 13. Iron deficiency. 14. Lymphedema. 15. Morbid obesity. 16. History of pleural effusion. 17. Renal stones. 18. Valvular disease. RECOMMENDATIONS: We discussed treatment options with the patient. At this juncture, she feels that she did not progress at the last injection to the level she would like. She would like to have another image of her low back area to [facility] [address] [place] [address] PAIN MANAGEMENT CONSULTATION Name: SHANE CASTAÑEDA Room #: REG [facility] Lorraine#: [id number] Admission: 12/25/19 Attend Phys: Spring Glasgow MD Discharge: Date of : 43 Report #: [id number] see whether or not something obvious is problematic or it is causing her discomfort. We have discussed the risk and benefits of an MRI. The patient will be provided a script to have any MRI performed. Hopefully, she will improve as time goes on. Possibility of another epidural steroid injection is an option. We would like to thank you for letting us participate in her care. We hope she continues to improve. By: [id number] Spring Glasgow MD /nt
[2019-12-25 10:15] VITALS: BP 134/69
--- NOTE | 2019-12-25 10:34 | NUR ---
Pain Clinic Assessment: 1. History of Osteoarthritis: SPINE History of Rheumatoid Arthritis: NO 2. Height: 5 ft. 0 in. 152.4 cm. Weight: 164.4 lb. oz. 74.571 kg. Patient's BMI: 32.1 3. Vital Signs: BP: 134/69 Pulse: 81 Resp: 14 Temp: 02 Sat: 100 ECG Mon: 4. Pain Intensity: 5 5. Fall Risk: Dizziness: N Needs help standing or walking: Y Fallen in the last 3 months: N Fall risk comments: WHEELCHAIR FOR LONG DISTANCES- USES CANE AT HOME 6. Patient on Blood Thinner: ELIQUIS 7. History of Hypertension: Y 8. Opioid Therapy greater than 6 weeks: N Opiate Contract Signed: 9. Risk Assessment Tool Provided: LOW RISK 0/3 10. Functional Assessment Tool: 43 11. Recreational Drug Use: Never Drug Type: Tobacco Use: Former Smoker Tobacco Type: Amount or Packs/day: How Many Years: Alcohol Use: No Frequency: Quant:
== END ==
LOC: PAIN 06:40
DX: M54.16 Radiculopathy, lumbar region (principal); M70.62 Trochanteric bursitis, left hip; J45.909 Unspecified asthma, uncomplicated; I48.91 Unspecified atrial fibrillation; I65.29 Occlusion and stenosis of unspecified carotid artery; J44.9 Chronic obstructive pulmonary disease, unspecified; E11.22 Type 2 diabetes mellitus with diabetic chronic kidney disease; I12.9 Hypertensive chronic kidney disease with stage 1 through stage 4 chronic kidney disease, or unspecified chronic kidney disease; N18.9 Chronic kidney disease, unspecified; E03.9 Hypothyroidism, unspecified; E66.01 Morbid (severe) obesity due to excess calories; N20.0 Calculus of kidney; E78.00 Pure hypercholesterolemia, unspecified; Y93.89 Activity, other specified

== ENCOUNTER → 2019-12-30 | Outpatient (CLI) | payer OTHER, BC | LOC: MRI 14:31 | DX: M47.26 Other spondylosis with radiculopathy, lumbar region (principal); M43.16 Spondylolisthesis, lumbar region; M43.8X6 Other specified deforming dorsopathies, lumbar region; M48.061 Spinal stenosis, lumbar region without neurogenic claudication; M51.16 Intervertebral disc disorders with radiculopathy, lumbar region ==

== ENCOUNTER → 2020-01-06 | Outpatient (CLI) | payer OTHER, BC | LOC: SJCVC 12:48 | DX: I48.21 Permanent atrial fibrillation (principal); I45.10 Unspecified right bundle-branch block; R94.31 Abnormal electrocardiogram [ECG] [EKG]; I13.0 Hypertensive heart and chronic kidney disease with heart failure and stage 1 through stage 4 chronic kidney disease, or unspecified chronic kidney disease; E11.22 Type 2 diabetes mellitus with diabetic chronic kidney disease; N18.3 Chronic kidney disease, stage 3 (moderate); I50.32 Chronic diastolic (congestive) heart failure; E78.00 Pure hypercholesterolemia, unspecified; J44.9 Chronic obstructive pulmonary disease, unspecified; E66.01 Morbid (severe) obesity due to excess calories; Z87.891 Personal history of nicotine dependence; Z79.899 Other long term (current) drug therapy ==

== ENCOUNTER → 2020-03-27 | Outpatient (CLI) | payer OTHER, BC ==
[~2020-03-27] VITALS: Ht 152.4 cm; Wt 74.4 kg
[~2020-03-27] MED LIST changes: +BENICAR20 MG PO
[2020-03-27 10:12] VITALS: BP 114/59
--- NOTE | 2020-03-27 10:21 | NUR ---
Pain Clinic Assessment: 1. History of Osteoarthritis: SPINE BILATERAL HANDS History of Rheumatoid Arthritis: NO 2. Height: 5 ft. 0 in. 152.4 cm. Weight: 164.0 lb. oz. 74.390 kg. Patient's BMI: 32.0 3. Vital Signs: BP: 114/59 Pulse: 86 Resp: 20 Temp: 02 Sat: 98 ECG Mon: 4. Pain Intensity: 9 5. Fall Risk: Dizziness: Y Needs help standing or walking: Y Fallen in the last 3 months: N Fall risk comments: USES CANE 6. Patient on Blood Thinner: ELIQUIS 7. History of Hypertension: Y 8. Opioid Therapy greater than 6 weeks: N Opiate Contract Signed: 9. Risk Assessment Tool Provided: LOW RISK 0/3 10. Functional Assessment Tool: 43/ 11. Recreational Drug Use: Never Drug Type: Tobacco Use: Former Smoker Tobacco Type: Cigarettes Amount or Packs/day: 1 How Many Years: 20 Alcohol Use: No Frequency: Quant:
--- NOTE | 2020-04-06 09:03 | HPC ---
[facility] [place] [address] [place] [address] PAIN MANAGEMENT CONSULTATION Name: SHANE CASTAÑEDA Room #: REG CONG Peters.#: [id number] Admission: 03/27/20 Attend Phys: Spring Glasgow MD Discharge: Date of : 43 Report #: [id number] THIS REPORT FOR: cc: Carolynn Arthur DNP, Mary E. DNP Brown, N. Wayne MD ~ CC: Carolynn Glasgow DATE OF SERVICE: 03/27/2020 CHIEF COMPLAINT: Osteoarthritis and pain in the legs. HISTORY: The patient is a 74-year-old female who has been followed in the pain clinic because of chronic pain. In the past, epidural steroid injections have been helpful. She continues to have pain that radiates down into her low back. It goes down into her ankles. She notes that both legs were involved. She has experienced some numbness and tingling in her feet. She has some cramping sensation. She rates her pain as a 9/10. Walking is problematic. Standing is problematic. She has gleaned benefit from use of heat as well as medications. Lying down, can be beneficial. She has returned today with the desire to undergo an epidural steroid injection. ALLERGIES: No known drug allergies. CURRENT MEDICATIONS: Glucosamine chondroitin, Xanax at bedtime, losartan 50 mg, Lasix 20 mg, Eliquis 5 mg, Synthroid 0.75 mg, Pulmicort 0.5 mg, desvenlafaxine 50 mg, alendronate 75/70, vitamins B12 1200 mcg, ascorbic acid, ProAir, diltiazem 325 mg, Actos 15 mg, and multivitamins. PAIN CLINIC ASSESSMENT AND PQRS: 1. The patient has some pain and discomfort involving her low back and spine. She is not being treated for rheumatoid arthritis. 2. Height 5 feet 0, weight 164 pounds, BMI is 32. 3. Vital signs: Blood pressure 114/59, pulse 86, respiratory rate 20, room air saturation 98%. 4. Pain intensity 07/16. 5. Fall risk. The patient has not fallen in the last 3 months. She is walking with a cane. 6. Blood thinner. The patient is on Eliquis. 7. Hypertension. The patient is being treated for hypertension. 8. Opioids greater than 6 weeks. The patient received medication from one source the pain clinic. 9. Risk assessment tool, low for opioid use. 10. Functional assessment tool . 11. Recreational [place] [address] PAIN MANAGEMENT CONSULTATION Name: SHANE CASTAÑEDA Room #: REG [facility]#: [id number] Admission: 03/27/20 Attend Phys: Spring Glasgow MD Discharge: Date of : 43 Report #: [id number] 12. Tobacco: The patient is a former smoker, smoked 1-pack of cigarettes for 20 years. 13. Alcohol. Denies use of alcoholic beverages at this juncture. PHYSICAL EXAMINATION: GENERAL: The patient is a well-developed, well-nourished white female. Appears her stated age. She is accompanied. She is alert and oriented x 3. Her affect is appropriate. HEENT: Normocephalic, atraumatic. Extraocular eye muscles intact. Sclerae nonicteric: The patient is in wheelchair. She is receiving oxygen via nasal cannula. NECK: Without adenopathy or JVD. HEART: Regular. LUNGS: Decreased lung sounds. ABDOMEN: Nontender. MUSCULOSKELETAL: Upper extremity muscle strength judged to be 4+/5 for the major muscle groups in the upper extremity. The patient also has pain and discomfort that radiates down the L5-S1 dermatomal distribution of her legs. IMPRESSION: 1. History of left greater trochanter bursitis. 2. History of lumbar radiculopathy. 3. History of greater trochanteric bursitis. 4. History of thoracentesis. 5. Asthma. 6. Atrial fibrillation history. 7. Carotid artery disease. 8. Chronic kidney disease. 9. Chronic obstructive pulmonary disease, on 2 liters of oxygen. 10. Diabetes. 11. Hypercholesterolemia. 12. Hypertension. 13. Hypothyroidism. 14. Iron deficiency. 15. Lymphedema. 16. Morbid obesity. 17. History of pleural effusion. 18. Renal stones. 19. Valvular disease. RECOMMENDATIONS: We discussed treatment options with the patient. We explained to the patient that patients who receive steroids have a decrease in their immunity and ability to fight off infections. The Covid-19 is pandemic, is problematic. At this juncture, the patient has quite a number of comorbidities, which would make her more susceptible to a bad outcome should she become infected with a Covid-19 virus. The patient's with chronic pain are more [facility] [address] [place] [address] PAIN MANAGEMENT CONSULTATION Name: SHANE CASTAÑEDA Room #: REG CONG Alegria#: [id number] Admission: 03/27/20 Attend Phys: Spring Glasgow MD Discharge: Date of : 43 Report #: [id number] susceptible to Covid-19. Elderly patients and also with multiple comorbidities are particularly susceptible. Chronic opioid therapy can cause immunosuppression in some patients. Use of steroids and interventional pain procedures may induce suppression. Because of all of these problems, we have recommended that the patient continue with a conservative approach at this juncture. At that time that she has been inoculated for Covid-19. We would think it would be reasonable at that point to proceed with an injection using steroids. Until then I think that the most conservative approach should be taken and the patient agrees. She will follow up in the future as needed. We will continue with a conservative approach. We may consider use of other opioid medications. The patient is taking tramadol. She does have pulmonary problems. <ELECTRONICALLY SIGNED> By: Spring Glasgow MD 04/06/20 0903 [id number] Spring Glasgow MD /nt
== END ==
LOC: PAIN 06:51
DX: I12.9 Hypertensive chronic kidney disease with stage 1 through stage 4 chronic kidney disease, or unspecified chronic kidney disease (principal); M54.16 Radiculopathy, lumbar region; I25.10 Atherosclerotic heart disease of native coronary artery without angina pectoris; N18.9 Chronic kidney disease, unspecified; E03.9 Hypothyroidism, unspecified; N20.0 Calculus of kidney; J45.909 Unspecified asthma, uncomplicated; Z79.899 Other long term (current) drug therapy

== ENCOUNTER → 2020-07-01 | Outpatient (CLI) | payer OTHER, BC ==
[~2020-07-01] VITALS: Ht 152.4 cm; Wt 70.9 kg
[2020-07-01 14:43] VITALS: BP 128/75
--- NOTE | 2020-07-01 14:58 | NUR ---
Pain Clinic Assessment: 1. History of Osteoarthritis: SPINE BILATERAL HANDS History of Rheumatoid Arthritis: NO 2. Height: 5 ft. 0 in. 152.4 cm. Weight: 156.2 lb. oz. 70.852 kg. Patient's BMI: 30.5 3. Vital Signs: BP: 128/75 Pulse: 72 Resp: 14 Temp: 02 Sat: 100 ECG Mon: 4. Pain Intensity: 8 5. Fall Risk: Dizziness: N Needs help standing or walking: Y Fallen in the last 3 months: N Fall risk comments: USES CANE 6. Patient on Blood Thinner: ELIQUIS 7. History of Hypertension: Y 8. Opioid Therapy greater than 6 weeks: N Opiate Contract Signed: 9. Risk Assessment Tool Provided: LOW RISK 0/3 10. Functional Assessment Tool: 11. Recreational Drug Use: Never Drug Type: Tobacco Use: Former Smoker Tobacco Type: Cigarettes Amount or Packs/day: 1/2 How Many Years: 20 Alcohol Use: No Frequency: Quant:
--- NOTE | 2020-07-09 15:09 | HPC ---
[facility] [place] [address] PAIN MANAGEMENT CONSULTATION Name: SHANE CASTAÑEDA Room #: REG [facility]G [facility].#: [id number] Admission: 07/01/20 Attend Phys: Spring Glasgow MD Discharge: Date of : 41 Report #: [id number] THIS REPORT FOR: cc: Carolynn Arthur DNP, Mary E. DNP Brown, N. [place] MD ~ CC: Carolynn Glasgow DATE OF SERVICE: 07/01/2020 CHIEF COMPLAINT: Leg pain down to the ankles. HISTORY: The patient is a 75-year-old female who has been followed in the pain clinic. She suffers from chronic pain. Epidural injections in the past were helpful. She has pain that radiates down into the low back area. Her ankles appear to be involved. It involves both sides. She notes some numbness and tingling in her feet. Does experience some cramping sensation. She has numbness in her feet. She rates her pain as an 8/10. Pain has been quite problematic since 04/2019. Walking, standing are problematic. She notes some improvement with use of her medications applying heat as well as sitting and lying down. She has returned today for renewal of her medications. ALLERGIES: No known drug allergies. CURRENT MEDICATIONS: Glucosamine chondroitin, Xanax at bedtime, losartan 50 mg, Lasix 20 mg, Eliquis 5 mg, Synthroid 0.75 mg, Pulmicort 0.5 mg, venlafaxine 50 mg, alendronate 75/70, vitamins B12 of 1200 mcg, ascorbic acid, ProAir, diltiazem 325 mg, Actos 15 mg, and multivitamins. PAIN CLINIC ASSESSMENT AND PQRS: 1. The patient has some pain and discomfort involving her low back and spine. She is not being treated for rheumatoid arthritis. 2. Height 5 feet 0, weight 156 pounds, BMI 30. 3. Vital Signs: Blood pressure 128/75, pulse 72, respiratory rate 14, room air saturation 100. 4. Pain intensity 8/10 when walking not problematic when sitting. 5. Fall risk. The patient has not fallen since we saw her last. She does walk using a cane. 6. Blood thinner. The patient is on Eliquis. 7. Hypertension. The patient is being treated for hypertension. 8. Opioids greater than 6 weeks. 9. Risk assessment tool, reviewed. 10. Functional assessment tool . 11. Recreational drug use. The patient denies. 12. Tobacco: The patient is a former smoker, [place] [address] PAIN MANAGEMENT CONSULTATION Name: SHANE CASTAÑEDA Room #: REG [facility]#: [id number] Admission: 07/01/20 Attend Phys: Spring Glasgow MD Discharge: Date of : 41 Report #: [id number] cigarettes per day for many years. Approximately, 20. 13. Alcohol. The patient denies frequent use of alcoholic beverages. PHYSICAL EXAMINATION: GENERAL: The patient is a well-developed, well-nourished white female. Appears her stated age. She is unaccompanied. She is alert and oriented x 3. Her affect is appropriate. Speech is fluent. HEENT: Normocephalic, atraumatic. Extraocular eye muscles intact. Sclerae nonicteric. Mucous membranes are moist. The patient is in a wheelchair. She is receiving oxygen via nasal cannula. NECK: Without adenopathy or JVD. HEART: Regular rate. LUNGS: Decreased breath sounds. ABDOMEN: Nontender. MUSCULOSKELETAL: Upper extremity muscle strength judged to be 4+/5 for the major muscle groups in the upper extremity. The patient also has pain and discomfort radiating down the lower portion of her back in the L5-S1 dermatomal distribution involving her legs. IMPRESSION: 1. History of left greater trochanteric bursitis. 2. History of lumbar radiculopathy. 3. History of thoracentesis. 4. Asthma. 5. Atrial fibrillation history. 6. Carotid artery disease. 7. Chronic kidney disease. 8. Chronic obstructive pulmonary disease, on 2 liters of oxygen. 9. Diabetes. 10. Hypercholesterolemia. 11. Hypertension. 12. Hypothyroidism. 13. Iron. 14. Lymphadenopathy. 15. Morbid obesity. 16. History of pleural effusion. 17. Renal stones. 18. Valvular disease. RECOMMENDATIONS: We discussed treatment options with the patient. At this point, we will continue with her medications and a script for her medications have been renewed. A script for tramadol has been rewritten. The patient will take 1 p.o. t.i.d. We again discussed the problems with COVID-19. The patient has multiple comorbidities. This might make her more susceptible to infection should she be rounded. We have also discussed the effects of steroid use. This can decrease one's immunity. At this point, we will continue with a [facility] [address] [place] [address] PAIN MANAGEMENT CONSULTATION Name: SHANE CASTAÑEDA [id number] Admission: 07/01/20 Attend Phys: Spring Glasgow MD Discharge: Date of : 41 Report #: [id number] conservative approach. A script for her medications of tramadol have been provided. The patient will call us if she has any concerns. We would like to thank you for letting us participate in her care. We hope she continues to improve. <ELECTRONICALLY SIGNED> By: Spring Glasgow MD 07/09/20 1509 [id number] Spring Glasgow MD /nt
== END ==
LOC: PAIN 06:57
PROVIDERS: ATTEND Anesthesiology Pain Medicine
DX: M25.572 Pain in left ankle and joints of left foot (principal); M25.571 Pain in right ankle and joints of right foot; I35.9 Nonrheumatic aortic valve disorder, unspecified; N20.0 Calculus of kidney; E66.01 Morbid (severe) obesity due to excess calories; R59.0 Localized enlarged lymph nodes; E61.1 Iron deficiency; E03.9 Hypothyroidism, unspecified; I10 Essential (primary) hypertension; E78.00 Pure hypercholesterolemia, unspecified; E11.9 Type 2 diabetes mellitus without complications; J44.9 Chronic obstructive pulmonary disease, unspecified; N18.9 Chronic kidney disease, unspecified; I25.10 Atherosclerotic heart disease of native coronary artery without angina pectoris; I48.91 Unspecified atrial fibrillation; Z87.39 Personal history of other diseases of the musculoskeletal system and connective tissue; Z87.09 Personal history of other diseases of the respiratory system; Z87.891 Personal history of nicotine dependence; Z79.899 Other long term (current) drug therapy

== ENCOUNTER → 2020-07-20 | Outpatient (CLI) | payer OTHER, BC | LOC: SJCVCIMAG 07-07 13:45 | PROVIDERS: ATTEND Internal Medicine Cardiovascular Disease | DX: I48.21 Permanent atrial fibrillation (principal); R60.9 Edema, unspecified; E78.00 Pure hypercholesterolemia, unspecified; J44.9 Chronic obstructive pulmonary disease, unspecified; I13.0 Hypertensive heart and chronic kidney disease with heart failure and stage 1 through stage 4 chronic kidney disease, or unspecified chronic kidney disease; N18.3 Chronic kidney disease, stage 3 (moderate); I50.32 Chronic diastolic (congestive) heart failure; E03.9 Hypothyroidism, unspecified; E66.01 Morbid (severe) obesity due to excess calories; Z87.891 Personal history of nicotine dependence; Z79.899 Other long term (current) drug therapy ==

== ENCOUNTER → 2020-07-22 | Outpatient (CLI) | payer OTHER, BC ==
[~2020-07-22] VITALS: Ht 152.4 cm; Wt 70.9 kg
--- NOTE | ~2020-07-22 | HPC ---
[facility] [place] [address] PAIN MANAGEMENT CONSULTATION Name: SHANE CASTAÑEDA Room #: REG CONG [facility].#: [id number] Admission: 07/22/20 Attend Phys: Spring Glasgow MD Discharge: Date of : 41 Report #: [id number] THIS REPORT FOR: cc: Carolynn Arthur DNP, Mary E. DNP Brown, N. [place] MD ~ CC: Carolynn Glasgow DATE OF SERVICE: 07/22/2020 PRIMARY CARE PHYSICIAN: ROSE MARIE Yanes CHIEF COMPLAINT: Pain down the back of both legs into the feet. HISTORY: The patient is a 75-year-old female who has been followed in the pain clinic. She has undergone epidural steroid injections in the past and found them beneficial. She had a flu shot about 2 weeks ago. She has returned today with the hopes of undergoing an epidural steroid injection to help quell the pain and discomfort she is experiencing down in both of her legs. She has been having pain since 04/2019. The pain at this juncture is described as sharp, aching. The pain is worse when she is walking or standing. She has found that medications, heat and sitting as well as lying down, can improve her level of comfort. She rates it as a 5/10 today. She would like to proceed with an injection. ALLERGIES: No known drug allergies. CURRENT MEDICATIONS: Glucosamine chondroitin, Xanax at bedtime, losartan 50 mg, Lasix 20 mg, Eliquis has been stopped, Synthroid 0.75 mg, Pulmicort 0.5 mg, venlafaxine 50 mg, alendronate 75/70, vitamin B12 1200 mcg, ascorbic acid, ProAir, diltiazem 325 mg, Actos 15 mg, and multivitamins. PAIN CLINIC ASSESSMENT AND PQRS: 1. The patient has some pain and discomfort involving her low back and down into the spine. She is not being treated for rheumatoid arthritis. 2. Height 5 feet 0, weight 156 pounds, BMI is 30. 3. Vital signs: Blood pressure is 158/71, pulse 88, respiratory rate 14, room air saturation 100%. 4. Pain intensity /10. 5. Fall history: The patient uses a cane to ambulate with. She has not fallen. 6. Blood thinner. The patient is on a blood thinning medication Eliquis and has stopped taking the medication. 7. Hypertension. The patient is being treated for hypertension. 8. Opioids greater than 6 weeks. The patient [place] [address] PAIN MANAGEMENT CONSULTATION Name: SHANE CASTAÑEDA Room #: REG [facility]#: [id number] Admission: 07/22/20 Attend Phys: Spring Glasgow MD Discharge: Date of : 41 Report #: [id number] source, her primary. 9. Risk assessment tool, low for opioid use. 10. Functional assessment tool . 11. Recreational drug use. The patient denies. 12. Tobacco: The patient is a former tobacco smoker. 13. Alcohol. The patient denies frequent use of alcoholic beverages. PHYSICAL EXAMINATION: GENERAL: The patient is a well-developed, well-nourished white female. Appears her stated age. She is alert and oriented x 3. Her affect is appropriate. Speech is fluent. HEENT: Normocephalic, atraumatic. Extraocular eye muscles intact. The patient is using oxygen 2 liters via nasal cannula. Has a facial covering on. HEENT: Normocephalic, atraumatic. NECK: Without adenopathy or JVD. HEART: Regular rate. LUNGS: Decreased breath sounds. ABDOMEN: Nontender. EXTREMITIES: Upper extremity muscle strength judged to be 4+/5 for the major muscle groups in the upper extremity. The patient has pain that is radiating down into the L5-S1 dermatomal distribution on the left as well as the right. Perceives some weakness in her legs. IMPRESSION: 1. History of left greater than right trochanteric bursitis. 2. History of lumbar radiculopathy. 3. History of thoracentesis. 4. Asthma. 5. Atrial fibrillation history. 6. Carotid artery disease. 7. Chronic kidney disease. 8. Chronic obstructive pulmonary disease, on 2 liters of oxygen. 9. Diabetes. 10. Hypercholesterolemia. 11. Hypertension. 12. Hypothyroidism. 13. Iron. 14. Lymphadenopathy. 15. Morbid obesity. 16. History of pleural effusion. 17. Renal stones. 18. Valvular disease. RECOMMENDATIONS: We discussed treatment options with the patient. Risks and benefits of an epidural steroid injection again were discussed. Possible complications of the procedure, which could include but are not limited to it [address] [address] PAIN MANAGEMENT CONSULTATION Name: SHANE CASTAÑEDA Room #: REG CONG [facility]#: [id number] Admission: 07/22/20 Attend Phys: Spring Glasgow MD Discharge: Date of : 41 Report #: [id number] were reviewed. The patient elects to proceed. She is aware that COVID-19 is pandemic. We have discussed the possible complication should she become infected with COVID that she may have a more difficult outcome. She elects to proceed. PROCEDURE NOTE: The patient was taken to the procedure area. She was then assisted in getting on the examination table. Her back was sterilely prepped with a Betadine solution. A 0.25% bupivacaine was infiltrated. A 17-gauge Tuohy with loss of resistance technique was used to gain access to the epidural space. There was no CSF, heme or paresthesia at the L5-S1 area. Fluoroscopy using anterior as well as lateral viewing were implemented. A total of 80 mg Depo-Medrol, 40 mg triamcinolone and 2 mL of 0.25% bupivacaine was injected. The patient tolerated the procedure well. Her pain decreased from 5-0 at the time of discharge. A total of 13 seconds fluoro time was used. We would like to thank you for letting us participate in her care. We hope she continues to improve. By: [id number] Spring Glasgow MD /LOUIS
[2020-07-22 09:36] VITALS: BP 158/71
--- NOTE | 2020-07-22 09:50 | NUR ---
Pain Clinic Assessment: 1. History of Osteoarthritis: SPINE BILATERAL HANDS History of Rheumatoid Arthritis: NO 2. Height: 5 ft. 0 in. 152.4 cm. Weight: 156.4 lb. oz. 70.943 kg. Patient's BMI: 30.5 3. Vital Signs: BP: 158/71 Pulse: 88 Resp: 14 Temp: 02 Sat: 100 ECG Mon: 4. Pain Intensity: 5 5. Fall Risk: Dizziness: N Needs help standing or walking: Y Fallen in the last 3 months: N Fall risk comments: USES CANE 6. Patient on Blood Thinner: ELIQUIS 7. History of Hypertension: Y 8. Opioid Therapy greater than 6 weeks: N Opiate Contract Signed: 9. Risk Assessment Tool Provided: LOW RISK 0/3 10. Functional Assessment Tool: 11. Recreational Drug Use: Never Drug Type: Tobacco Use: Former Smoker Tobacco Type: Amount or Packs/day: How Many Years: Alcohol Use: No Frequency: Quant:
== END | disposition home or self-care (01) ==
LOC: PAIN 06:52
PROVIDERS: ATTEND Anesthesiology Pain Medicine
DX: M54.16 Radiculopathy, lumbar region (principal); M70.62 Trochanteric bursitis, left hip; G89.29 Other chronic pain; I12.9 Hypertensive chronic kidney disease with stage 1 through stage 4 chronic kidney disease, or unspecified chronic kidney disease; E11.22 Type 2 diabetes mellitus with diabetic chronic kidney disease; N18.9 Chronic kidney disease, unspecified; I48.91 Unspecified atrial fibrillation; J45.909 Unspecified asthma, uncomplicated; J44.9 Chronic obstructive pulmonary disease, unspecified; E03.9 Hypothyroidism, unspecified; E66.01 Morbid (severe) obesity due to excess calories; Z98.890 Other specified postprocedural states; Z79.899 Other long term (current) drug therapy; Z87.442 Personal history of urinary calculi; Z68.30 Body mass index [BMI] 30.0-30.9, adult; Z79.01 Long term (current) use of anticoagulants

== ENCOUNTER → 2020-10-14 | Outpatient (CLI) | payer OTHER, BC ==
[~2020-10-14] VITALS: Ht 152.4 cm; Wt 73.8 kg
[2020-10-14 09:43] VITALS: BP 115/40
--- NOTE | 2020-10-14 10:04 | NUR ---
Pain Clinic Assessment: 1. History of Osteoarthritis: SPINE BILATERAL HANDS History of Rheumatoid Arthritis: NO 2. Height: 5 ft. 0 in. 152.4 cm. Weight: 162.6 lb. oz. 73.755 kg. Patient's BMI: 31.8 3. Vital Signs: BP: 115/40 Pulse: 63 Resp: 16 Temp: 02 Sat: 98 ECG Mon: 4. Pain Intensity: 2 5. Fall Risk: Dizziness: N Needs help standing or walking: Y Fallen in the last 3 months: N Fall risk comments: USES CANE 6. Patient on Blood Thinner: ELIQUIS 7. History of Hypertension: Y 8. Opioid Therapy greater than 6 weeks: N Opiate Contract Signed: 9. Risk Assessment Tool Provided: LOW RISK 0/3 10. Functional Assessment Tool: 43/ 11. Recreational Drug Use: Never Drug Type: Tobacco Use: Former Smoker Tobacco Type: Amount or Packs/day: How Many Years: Alcohol Use: No Frequency: Quant:
== END | disposition home or self-care (01) ==
LOC: PAIN 06:48
PROVIDERS: ATTEND Anesthesiology Pain Medicine
DX: M54.16 Radiculopathy, lumbar region (principal); G89.29 Other chronic pain; I10 Essential (primary) hypertension; E11.9 Type 2 diabetes mellitus without complications; E78.00 Pure hypercholesterolemia, unspecified; I48.91 Unspecified atrial fibrillation; J44.9 Chronic obstructive pulmonary disease, unspecified; Z98.890 Other specified postprocedural states; Z79.899 Other long term (current) drug therapy; Z79.01 Long term (current) use of anticoagulants

== ENCOUNTER → 2020-12-09 | Outpatient (CLI) | payer OTHER, BC ==
[~2020-12-09] VITALS: Ht 152.4 cm; Wt 74.6 kg
[~2020-12-09] MED LIST changes: +JANUVIA25 MG PO; -LEVOTHYROXIN0.075 MG PO; +SYNTHROID100 MC1 PO
[2020-12-09 10:19] VITALS: BP 130/64
--- NOTE | 2020-12-09 10:44 | NUR ---
Pain Clinic Assessment: 1. History of Osteoarthritis: SPINE BILATERAL HANDS History of Rheumatoid Arthritis: NO 2. Height: 5 ft. 0 in. 152.4 cm. Weight: 164.4 lb. oz. 74.571 kg. Patient's BMI: 32.1 3. Vital Signs: BP: 130/64 Pulse: 57 Resp: 16 Temp: 02 Sat: 100 ECG Mon: 4. Pain Intensity: 6 5. Fall Risk: Dizziness: N Needs help standing or walking: Y Fallen in the last 3 months: Y Fall risk comments: USES CANE 6. Patient on Blood Thinner: ELIQUIS 7. History of Hypertension: Y 8. Opioid Therapy greater than 6 weeks: N Opiate Contract Signed: 9. Risk Assessment Tool Provided: LOW RISK 0/3 10. Functional Assessment Tool: 43/ 11. Recreational Drug Use: Never Drug Type: Tobacco Use: Former Smoker Tobacco Type: Amount or Packs/day: How Many Years: Alcohol Use: No Frequency: Quant:
== END | disposition home or self-care (01) ==
LOC: PAIN 06:48
PROVIDERS: ATTEND Anesthesiology Pain Medicine
DX: M54.16 Radiculopathy, lumbar region (principal); G89.29 Other chronic pain; I12.9 Hypertensive chronic kidney disease with stage 1 through stage 4 chronic kidney disease, or unspecified chronic kidney disease; N18.9 Chronic kidney disease, unspecified; E03.9 Hypothyroidism, unspecified; E11.22 Type 2 diabetes mellitus with diabetic chronic kidney disease; E78.00 Pure hypercholesterolemia, unspecified; J44.9 Chronic obstructive pulmonary disease, unspecified; I48.91 Unspecified atrial fibrillation; Z98.890 Other specified postprocedural states; Z79.899 Other long term (current) drug therapy; Z87.442 Personal history of urinary calculi; Z90.49 Acquired absence of other specified parts of digestive tract; Z79.01 Long term (current) use of anticoagulants; Z88.8 Allergy status to other drugs, medicaments and biological substances

== ENCOUNTER → 2021-01-05 | Outpatient (CLI) | payer OTHER, BC | LOC: SJCVC 10:34 | PROVIDERS: ATTEND Internal Medicine Cardiovascular Disease | DX: R94.31 Abnormal electrocardiogram [ECG] [EKG] (principal); I48.91 Unspecified atrial fibrillation; I13.0 Hypertensive heart and chronic kidney disease with heart failure and stage 1 through stage 4 chronic kidney disease, or unspecified chronic kidney disease; E11.22 Type 2 diabetes mellitus with diabetic chronic kidney disease; N18.30 Chronic kidney disease, stage 3 unspecified; I50.32 Chronic diastolic (congestive) heart failure; I48.21 Permanent atrial fibrillation; E78.00 Pure hypercholesterolemia, unspecified; R60.9 Edema, unspecified; Z79.899 Other long term (current) drug therapy; Z87.891 Personal history of nicotine dependence ==

== ENCOUNTER → 2021-01-08 | Outpatient (CLI) | payer OTHER, BC ==
[~2021-01-08] VITALS: Ht 152.4 cm; Wt 68.1 kg
[2021-01-08 09:42] VITALS: BP 149/77
--- NOTE | 2021-01-08 09:54 | NUR ---
Pain Clinic Assessment: 1. History of Osteoarthritis: SPINE BILATERAL HANDS History of Rheumatoid Arthritis: NO 2. Height: 5 ft. 0 in. 152.4 cm. Weight: 150.2 lb. oz. 68.130 kg. Patient's BMI: 29.3 3. Vital Signs: BP: 149/77 Pulse: 106 Resp: 16 Temp: 02 Sat: 98 ECG Mon: 4. Pain Intensity: 8; 6 AFTER MED AT TIMES 5. Fall Risk: Dizziness: N Needs help standing or walking: Y Fallen in the last 3 months: N Fall risk comments: USES CANE 6. Patient on Blood Thinner: ELIQUIS 7. History of Hypertension: Y 8. Opioid Therapy greater than 6 weeks: N Opiate Contract Signed: 9. Risk Assessment Tool Provided: LOW RISK 0/3 10. Functional Assessment Tool: 43 11. Recreational Drug Use: Never Drug Type: Tobacco Use: Former Smoker Tobacco Type: Amount or Packs/day: How Many Years: Alcohol Use: No Frequency: Quant:
== END ==
LOC: PAIN 06:45
PROVIDERS: ATTEND Anesthesiology Pain Medicine
DX: M54.17 Radiculopathy, lumbosacral region (principal); E11.22 Type 2 diabetes mellitus with diabetic chronic kidney disease; I12.9 Hypertensive chronic kidney disease with stage 1 through stage 4 chronic kidney disease, or unspecified chronic kidney disease; N18.9 Chronic kidney disease, unspecified; J44.9 Chronic obstructive pulmonary disease, unspecified; E78.00 Pure hypercholesterolemia, unspecified; E03.9 Hypothyroidism, unspecified; R59.0 Localized enlarged lymph nodes; E66.01 Morbid (severe) obesity due to excess calories; N20.0 Calculus of kidney; I38 Endocarditis, valve unspecified; Z87.75 Personal history of (corrected) congenital malformations of respiratory system; Z88.8 Allergy status to other drugs, medicaments and biological substances; Z79.899 Other long term (current) drug therapy

== ENCOUNTER → 2021-03-10 | Outpatient (CLI) | payer OTHER, BC ==
[~2021-03-10] VITALS: Ht 152.4 cm; Wt 71.8 kg
[2021-03-10 09:57] VITALS: BP 122/55
--- NOTE | 2021-03-10 10:15 | NUR ---
Pain Clinic Assessment: 1. History of Osteoarthritis: SPINE BILATERAL HANDS History of Rheumatoid Arthritis: NO 2. Height: 5 ft. 0 in. 152.4 cm. Weight: 158.2 lb. oz. 71.759 kg. Patient's BMI: 30.9 3. Vital Signs: BP: 122/55 Pulse: 65 Resp: 16 Temp: 02 Sat: 100 ECG Mon: 4. Pain Intensity: 6-7 STAND 5. Fall Risk: Dizziness: N Needs help standing or walking: Y Fallen in the last 3 months: N Fall risk comments: USES CANE 6. Patient on Blood Thinner: ELIQUIS 7. History of Hypertension: Y 8. Opioid Therapy greater than 6 weeks: N Opiate Contract Signed: 9. Risk Assessment Tool Provided: LOW RISK 0/3 10. Functional Assessment Tool: 11. Recreational Drug Use: Never Drug Type: Tobacco Use: Former Smoker Tobacco Type: Amount or Packs/day: How Many Years: Alcohol Use: No Frequency: Quant:
== END | disposition home or self-care (01) ==
LOC: PAIN 08:22
PROVIDERS: ATTEND Anesthesiology Pain Medicine
DX: M54.16 Radiculopathy, lumbar region (principal); G89.29 Other chronic pain; I12.9 Hypertensive chronic kidney disease with stage 1 through stage 4 chronic kidney disease, or unspecified chronic kidney disease; E11.22 Type 2 diabetes mellitus with diabetic chronic kidney disease; N18.9 Chronic kidney disease, unspecified; E03.9 Hypothyroidism, unspecified; E78.00 Pure hypercholesterolemia, unspecified; I48.91 Unspecified atrial fibrillation; J44.9 Chronic obstructive pulmonary disease, unspecified; E66.01 Morbid (severe) obesity due to excess calories; M19.90 Unspecified osteoarthritis, unspecified site; Z98.890 Other specified postprocedural states; Z79.899 Other long term (current) drug therapy; Z87.19 Personal history of other diseases of the digestive system; Z98.0 Intestinal bypass and anastomosis status; Z87.442 Personal history of urinary calculi

== ENCOUNTER → 2021-05-26 | Outpatient (CLI) | payer OTHER, BC ==
[2021-05-26 10:33] VITALS: BP 112/46
--- NOTE | 2021-07-02 15:00 | HPC ---
[facility] [place] [address] PAIN MANAGEMENT CONSULTATION Name: SHANE CASTAÑEDA Room #: REG [facility].#: [id number] Admission: 05/26/21 Attend Phys: Spring Glasgow MD Discharge: Date of : 41 Report #: [id number] THIS REPORT FOR: cc: Carolynn Arthur DNP, Mary E. DNP Brown, N. [place] MD ~ cc: ROSE MARIE Yanes DATE OF SERVICE: 05/26/2021 CHIEF COMPLAINT: Back and bilateral leg pain. HISTORY OF PRESENT ILLNESS: The patient is a 76-year-old female, who has been followed in the pain clinic because of lumbar radiculopathy. She is being treated with Eliquis as an anticoagulant. She has not stopped her Eliquis and was not seen in the pain clinic for an injection on 05/26. She will return on 05/28, at which time she will undergo a lumbar epidural steroid injection. <ELECTRONICALLY SIGNED> By: Spring Glasgow MD 07/02/21 [id number] Spring Glasgow MD /nt
== END ==
LOC: PAIN 10:14
PROVIDERS: ATTEND Anesthesiology Pain Medicine
DX: M54.5 Low back pain (principal); M79.604 Pain in right leg; M79.605 Pain in left leg

== ENCOUNTER → 2021-05-28 | Outpatient (CLI) | payer OTHER, BC ==
[~2021-05-28] VITALS: Ht 152.4 cm; Wt 71.7 kg
[2021-05-28 13:27] VITALS: BP 98/60
--- NOTE | 2021-05-28 14:00 | NUR ---
Pain Clinic Assessment: 1. History of Osteoarthritis: SPINE BILATERAL HANDS History of Rheumatoid Arthritis: NO 2. Height: 5 ft. 0 in. 152.4 cm. Weight: 158.0 lb. oz. 71.668 kg. Patient's BMI: 30.9 3. Vital Signs: BP: 98/60 Pulse: 95 Resp: 16 Temp: 02 Sat: 96 ECG Mon: 4. Pain Intensity: 10 STAND 5. Fall Risk: Dizziness: N Needs help standing or walking: Y Fallen in the last 3 months: N Fall risk comments: USES CANE 6. Patient on Blood Thinner: ELIQUIS 7. History of Hypertension: Y 8. Opioid Therapy greater than 6 weeks: N Opiate Contract Signed: 9. Risk Assessment Tool Provided: LOW RISK 0/3 10. Functional Assessment Tool: 11. Recreational Drug Use: Never Drug Type: Tobacco Use: Former Smoker Tobacco Type: Amount or Packs/day: How Many Years: Alcohol Use: No Frequency: Quant:
== END | disposition home or self-care (01) ==
LOC: PAIN 06:50
PROVIDERS: ATTEND Anesthesiology Pain Medicine
DX: M54.16 Radiculopathy, lumbar region (principal); G89.29 Other chronic pain; I10 Essential (primary) hypertension; M19.90 Unspecified osteoarthritis, unspecified site; Z98.890 Other specified postprocedural states; Z79.899 Other long term (current) drug therapy; Z87.442 Personal history of urinary calculi; Z87.19 Personal history of other diseases of the digestive system; Z87.891 Personal history of nicotine dependence; Z98.0 Intestinal bypass and anastomosis status